=== PATIENT | female | born 1990 | race Caucasian/White ===

== ENCOUNTER 2016-10-07 18:12 | Emergency (ER) | payer BC ==
--- NOTE | 2016-10-07 19:20 | ED ---
HPI Cardiac - HPI Summary HPI Summary: Pt here w/ acute onset tachycardia, chest pain and feeling "hot on the inside" today while at work. Worse w/ standing which she expects due to her P.O.T.S. 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 She reports a recent h/o diarrhea and chest warmth about 2 weeks ago - was concerned her implanted cardiac event monitor (placed by Dr. Shirley in 08/2016) was infected, so she followed up with Dr. Oropeza - pt reports she did not have a fever per thermometer and physician felt her chest then told her it was not infected - no labs, etc. Pt also reports that she gets diarrhea when her electrolytes are imbalanced and she knows this is a sign of hypokalemia but was putting it off until the last minute. States he is urinating frequently as well today (another sign electrolytes imbalance). Also admits to a vegetarian diet w/o iron supplementation (ferritin in lab records was < 10 in 05/2016). Pt states she has had no medical counseling since this lab draw on how to replace this but she was going to start iron supplements. She did not because she read iron overdose is common and got nervous. She also admits she does not eat iron rich foods, such as green vegetables, almonds, dairy, nuts, etc. States she doesn't eat much in general as she's often nauseous - denies h/o eating d/o. Does not consume caffeine or ETOH nor does she smoke tobacco or use drugs. No stimulant use rx'd or other. - History of Current Complaint Chief Complaint: EDDysrhythmPalp Stated Complaint: PALPITATIONS-CARDIAC HX Time Seen by Provider: 10/07/16 18:35 Hx Obtained From: Patient Pain Intensity: 6 - Allergy/Home Medications Allergies/Adverse Reactions: Allergies Allergy/AdvReac Type Severity Reaction Status Date / Time Latex Allergy Hives Verified 10/07/16 18:21 PMH/Surg Hx/FS Hx/Imm Hx Previously Healthy: Yes Endocrine/Hematology History: Reports: Hx Anemia - ferritin < 10 on 05/2016 w/o replacement, Other Endocrine/Hematological Disorders - Gitleman's syndrome Denies: Hx Anticoagulant Therapy, Hx Blood Disorders, Hx Diabetes, Hx Systemic Lupus Erythematosus, Hx Unexplained Bleeding Cardiovascular History: Reports: Hx Hypertension - TREATED WITH MEDICATION, Other Cardiovascular Problems/Disorders - postural orthostatic tachycardia syndrome - cardiac event monitor 08/2016 Denies: Hx Congestive Heart Failure, Hx Pacemaker/ICD Respiratory History: Reports: Hx Asthma, Hx Pulmonary Edema GI History: Denies: Hx Gastrointestinal Bleed, Hx Ulcer History: Reports: Other Problems/Disorders - Gitelman's syndrome Denies: Hx Dialysis, Hx Renal Disease Musculoskeletal History: Denies: Hx Rheumatoid Arthritis Sensory History: Reports: Hx Contacts or Glasses Denies: Hx Hearing Aid Opthamlomology History: Reports: Hx Contacts or Glasses Neurological History: Reports: Other Neuro Impairments/Disorders - autoimmune nerve disfunction Psychiatric History: Denies: Hx Panic Disorder - Cancer History Hx Chemotherapy: No Infectious Disease History: Yes Infectious Disease History: Denies: History Other Infectious Disease, Traveled Outside the [place] in Last 30 Days - Family History Known Family History: Negative: Diabetes - Social History Occupation: Employed Full-time Alcohol Use: None Hx Substance Use: No Substance Use Type: Reports: None Hx Tobacco Use: No Smoking Status (MU): Never Smoked Tobacco Have You Smoked in the Last Year: No Review of Systems Constitutional: Other - see HPI Cardiovascular: Other - no chest pain currently Positive: Shortness Of Breath Gastrointestinal: Other - see HPI Negative: Abdominal Pain, Vomiting Positive: see HPI Musculoskeletal: Other - hurts all over (chronic) Skin: Negative Neurological: Negative Positive: Anxious All Other Systems Reviewed And Are Negative: Yes Physical Exam Triage Information Reviewed: Yes Vital Signs On Initial Exam: Initial Vitals Temp Pulse Resp BP Pulse Ox 99 F 109 20 134/81 100 10/07/16 18:21 10/07/16 18:21 10/07/16 18:21 10/07/16 18:21 10/07/16 18:21 Vital Signs Reviewed: Yes Appearance: Positive: No Pain Distress - appears anxious w/ dry mouth - breathing is somewhat labored Skin: Positive: Warm, Dry - no signs of ecchymosis Head/Face: Positive: Normal Head/Face Inspection Eyes: Positive: Normal, EOMI, Conjunctiva Clear - anicteric sclera ENT: Positive: Hearing grossly normal, Other - oral mucosa dry Neck: Positive: Supple - no gross thyromegaly Respiratory/Lung Sounds: Positive: Clear to Auscultation, Breath Sounds Present Cardiovascular: Positive: Pulses are Symmetrical in both Upper and Lower Extremities, Tachycardia, S1, S2. Negative: Murmur, Rub, Leg Edema Left, Leg Edema Right Abdomen Description: Positive: Nontender, Soft Bowel Sounds: Positive: Present Musculoskeletal: Positive: Normal, Strength/ROM Intact Neurological: Positive: Normal, Sensory/Motor Intact, Alert, Oriented to Person Place, Time, CN Intact II-III Psychiatric: Positive: Anxious Diagnostics - Vital Signs Vital Signs Temp Pulse Resp BP Pulse Ox 10/07/16 18:21 99 F 109 20 134/81 100 - Laboratory Result Diagrams: 10/07/16 20:05 10/07/16 20:05 Lab Statement: Any lab studies that have been ordered have been reviewed, and results considered in the medical decision making process. Re-Evaluation - Re-Evaluation First Eval Change: Worse - pt reports chest pain @ 19:47 - ASA ordered and fluids to be hung DYLAN Second Eval Change: Improved - per nurse, pt declined ASA - sx improved after placing a warm blanket over her chest and once IVF were administered - vitals and breathing improved as well Disposition - Course Course Of Treatment: Discussed sx and findings w/ pt. Appears to have been dehydrated from recent diarrhea which may have triggered her tachycardia to be more apparent than usual. She also admits she's not been taking her medications nor supplements as directed. Sx improved w/ IVF and reassurance. Her 1st dose of phosphate was administered here and she will continue to take this over the next 2 days along with routine meds/supplements previously rx'd to return to baseline which per pt, was "good". She is aware of danger s/sx of when to return to ED and will f/u w/ PCP tomorrow or the following day for recheck of phosphorous level. - Diagnoses Provider Diagnoses: Hypophosphatemia, Postural orthostatic tachycardia syndrome - Physician Notifications Discussed Care Of Patient With: Dr. Gaytan. Dr. Shanks. Celestino, pharmacist, re : dosing of phosphorous Discharge - Discharge Plan Condition: Stable Disposition: HOME Prescriptions: Potassium & Sodium Phos 250MG* [Neutra Phos 250 MG NELL*] 200 mg PO QID #1 box Patient Education Materials: Phosphate Supplement (By mouth) Forms: *Work Release Referrals: Urmila Shirley MD [Medical Doctor] - Xiang Muir MD [Primary Care Provider] - Additional Instructions: Your labs tonight indicate very low phosphate and somewhat low potassium. It is important that you take supplements as directed and follow-up with your PCP in the next 1-2 days. Only take your phosphate supplement for 2 days and have labs rechecked by PCP. Call in the morning to schedule follow-up appointment. 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 Let them know to check the event monitor during your episode from today. Restart your routine medications as directed by PCP and cardiology along with a well balanced diet. You may have iron anemia - please discuss with your PCP. *If you have return of chest pain, uncontrolled tachycardia, vomiting, difficulty breathing, fever, headache, return to ED
[2016-10-07] MEDS ORDERED: NS 0.9% 1000 ML* 1,000 ML IV ONE (19:36)
--- NOTE | 2016-10-07 19:41 | RAD ---
Indication: Tachycardia. Palpitations. Comparison: June 27, 2015 Technique: Upright AP 1926 hours Report: electro mechanical designer visualized overlying the LEFT heart margin. Clear lungs and pleural spaces. Negative for pneumothorax. The heart, pulmonary vasculature, and mediastinal contours are unremarkable. Unremarkable osseous structures and soft tissue contours. IMPRESSION: No evidence for acute intrathoracic disease.
[2016-10-07] MEDS ORDERED: Aspirin TAB* 325 MG PO ONE (19:46)
[2016-10-07 20:30] LABS: Hematocrit 48 % (35-47); Hemoglobin 16.2 g/dl (12.0-16.0); Mean Corpuscular HGB Conc 34 g/dl (31-36); Mean Corpuscular Hemoglobin 29 pg (27-31); Mean Corpuscular Volume 87 fL (80-97); Mean Platelet Volume 9 um3 (7.4-10.4); Red Blood Count 5.52 10^6/ul (4.0-5.4); Red Cell Distribution Width 12 % (10.5-15)
[2016-10-07 20:31] LABS: Urine Bilirubin Negative (Negative); Urine Glucose Negative (Negative); Urine Nitrite Negative (Negative)
[2016-10-07 20:49] LABS: Albumin 4.8 g/dL (3.2-5.2); BUN/Creatinine Ratio 9.1 (8-20); Calcium 9.8 mg/dL (8.6-10.3); EGFR African American 139.2 (>60); EGFR Non-African American 108.3 (>60); Globulin 3.5 g/dL (2-4); Phosphorus 1.1 mg/dL (2.5-5.0); Potassium 3.4 mmol/L (3.5-5.0); Total Bilirubin 0.4 mg/dL (0.2-1.0); Total Protein 8.3 g/dL (6.4-8.9)
[2016-10-07 21:08] LABS: TSH (Thyroid Stimulating Horm) 2.69 mcIU/mL (0.34-5.60)
[2016-10-07] MEDS ORDERED: Potassium & Sodium Phos 250MG* = 1 PACKET PO ONE (23:00)
[2016-10-07 23:37] VITALS: BP 108/61
== END 2016-10-07 23:50 | disposition home or self-care (01) ==
LOC: ED 18:12
DX: E83.39 Other disorders of phosphorus metabolism (principal); I49.8 Other specified cardiac arrhythmias; R00.0 Tachycardia, unspecified; R06.02 Shortness of breath; F41.9 Anxiety disorder, unspecified
CPT/HCPCS: 36415; 71010; 80053; 81003; 82550; 83540; 83550; 83605; 83735; 84100; 84443; 84484; 84702; 85025; 85610; 85730; 93005; 99283

== ENCOUNTER 2017-03-05 15:26 | Emergency (ER) | payer BC ==
[2017-03-05 15:36] VITALS: BP 114/67
--- NOTE | 2017-03-05 16:10 | UC ---
Throat Pain/Nasal Shadi HPI - HPI Summary HPI Summary: 26 yo female with a 2 week hx of post nasal drip (thick and tenacious), sinus pressure and pain as well as nasal congestion Hoarse no fever upper teeth feel funny worsening dyspepsia - History of Current Complaint Chief Complaint: UCRespiratory Stated Complaint: SINUS Time Seen by Provider: 03/05/17 15:34 Hx Obtained From: Patient Hx Last Menstrual Period: unknown, on BCP Onset/Duration: Lasting Weeks Severity: Moderate Pain Intensity: 4 Pain Scale Used: 0-10 Numeric Associated Signs & Symptoms: Positive: Sinus Discomfort, Nasal Discharge - Epiglottits Risk Factors Epiglottis Risk Factors: Negative - Allergies/Home Medications Allergies/Adverse Reactions: Allergies Allergy/AdvReac Type Severity Reaction Status Date / Time Latex Allergy Hives Verified 03/05/17 15:36 PMH/Surg Hx/FS Hx/Imm Hx Previously Healthy: Yes - P.O.T.S/Getalman's syndrome Other History Of: Negative For: Anticoagulant Therapy - Surgical History Surgical History: None - Family History Known Family History: Positive: Hypertension Negative: Diabetes - Social History Alcohol Use: Rare Substance Use Type: None Smoking Status (MU): Never Smoked Tobacco Have You Smoked in the Last Year: No - Immunization History Most Recent Influenza Vaccination: no Most Recent Tetanus Shot: UNKNOWN Most Recent Pneumonia Vaccination: never Review of Systems Constitutional: Negative Skin: Negative Eyes: Negative ENT: Nasal Discharge, Sinus Congestion, Sinus Pain/Tenderness Respiratory: Cough Cardiovascular: Negative Gastrointestinal: Other - worsening symptoms x weeks Genitourinary: Negative Motor: Negative Neurovascular: Negative Musculoskeletal: Negative Neurological: Negative Psychological: Negative All Other Systems Reviewed And Are Negative: Yes Physical Exam Triage Information Reviewed: Yes Appearance: Well-Appearing, No Pain Distress, Well-Nourished Vital Signs: Initial Vital Signs Temp 98.6 F 03/05/17 15:31 Pulse 84 03/05/17 15:31 Resp 14 03/05/17 15:31 BP 114/67 03/05/17 15:31 Pulse Ox 100 03/05/17 15:31 Eyes: Positive: Conjunctiva Clear ENT: Positive: Hearing grossly normal, TMs normal. Negative: Nasal congestion, Nasal drainage, Tonsillar swelling, Tonsillar exudate, Trismus, Muffled/hoarse voice Neck: Positive: Supple, Nontender, No Lymphadenopathy Respiratory: Positive: Lungs clear, Normal breath sounds, No respiratory distress, No accessory muscle use Cardiovascular: Positive: RRR, No Murmur Neurological: Positive: Alert Psychological Exam: Normal Skin Exam: Normal Throat Pain/Nasal Course/Dx - Differential Dx/Diagnosis Provider Diagnoses: acute sinusitis Discharge - Discharge Plan Condition: Stable Disposition: HOME Prescriptions: Amoxicillin PO (*) [Amoxicillin 875 MG (*)] 875 mg PO BID #20 tab Fluticasone NASAL SPRAY 50MCG* [Flonase NASAL SPRAY 50MCG*] 2 spray BOTH NARES DAILY #1 btl Patient Education Materials: Sinusitis (ED), Indigestion (ED) Referrals: Xiang Muir MD [Primary Care Provider] - 5 Days Additional Instructions: I suggest you see your MD next week return for new or worsening symptoms warm facial compresses saline nasal spray Use your OTC pepcid for 2 weeks
== END 2017-03-05 16:04 | disposition home or self-care (01) ==
LOC: UCCORT 15:26
DX: J01.90 Acute sinusitis, unspecified (principal)
CPT/HCPCS: 99212; G0463

== ENCOUNTER 2017-08-14 13:46 | Emergency (ER) | payer BC ==
[2017-08-14 17:16] VITALS: BP 125/80
--- NOTE | 2017-08-14 17:38 | UC ---
Complaint Female HPI - HPI Summary HPI Summary: pain and burning with urination, no fevers chills back pain, nausea or vomiting , patient noted blood in her urine earlier today - History Of Current Complaint Chief Complaint: UCGU Stated Complaint: URINARY ISSUE Time Seen by Provider: 08/14/17 17:35 Hx Obtained From: Patient Hx Last Menstrual Period: 07/30/17 ?: No Onset/Duration: Sudden Onset, Lasting Days, Still Present Timing: Constant Severity Initially: Moderate Severity Currently: Moderate Pain Intensity: 8 Character: Burning Aggravating Factor(s): Urination Alleviating Factor(s): Nothing Associated Signs And Symptoms: Positive: Negative - Allergies/Home Medications Allergies/Adverse Reactions: Allergies Allergy/AdvReac Type Severity Reaction Status Date / Time MS Latex [Latex] Allergy Hives Verified 08/14/17 17:16 PMH/Surg Hx/FS Hx/Imm Hx Previously Healthy: No Cardiovascular History: Cardiac Disease - tachycardia Other History Of: Negative For: Anticoagulant Therapy - Surgical History Surgical History: None - Family History Known Family History: Positive: Hypertension Negative: Diabetes - Social History Occupation: Employed Full-time Lives: With Family Alcohol Use: Rare Substance Use Type: None Smoking Status (MU): Never Smoked Tobacco Have You Smoked in the Last Year: No - Immunization History Most Recent Influenza Vaccination: no Most Recent Tetanus Shot: UNKNOWN Most Recent Pneumonia Vaccination: never Review of Systems Constitutional: Negative Skin: Negative Eyes: Negative ENT: Negative Respiratory: Negative Cardiovascular: Negative Gastrointestinal: Negative Genitourinary: Dysuria, Hematuria, Frequency, Urgency Motor: Negative Neurovascular: Negative Musculoskeletal: Negative Neurological: Negative Psychological: Negative Is Patient Immunocompromised?: No All Other Systems Reviewed And Are Negative: Yes Physical Exam Triage Information Reviewed: Yes Appearance: Well-Appearing, No Pain Distress, Well-Nourished Vital Signs: Initial Vital Signs Temp 98.9 F 08/14/17 17:12 Pulse 85 08/14/17 17:12 Resp 12 08/14/17 17:12 BP 125/80 08/14/17 17:12 Pulse Ox 100 08/14/17 17:12 Vital Signs Reviewed: Yes Eye Exam: Normal Eyes: Positive: Conjunctiva Clear ENT Exam: Normal ENT: Positive: Normal ENT inspection, Hearing grossly normal. Negative: Nasal congestion, Trismus, Muffled voice, Hoarse voice, Dental tenderness, Sinus tenderness Dental Exam: Normal Neck exam: Normal Neck: Positive: Supple, Nontender Respiratory Exam: Normal Respiratory: Positive: Chest non-tender, Lungs clear, Normal breath sounds, No respiratory distress, No accessory muscle use Cardiovascular Exam: Normal Cardiovascular: Positive: RRR, No Murmur, Pulses Normal, Brisk Capillary Refill Abdominal Exam: Normal Abdomen Description: Positive: Nontender, No Organomegaly, Soft. Negative: CVA Tenderness (R), CVA Tenderness (L), McBurney's Point Tenderness Bowel Sounds: Positive: Present Musculoskeletal Exam: Normal Musculoskeletal: Positive: Strength Intact, ROM Intact, No Edema Neurological Exam: Normal Neurological: Positive: Alert, Muscle Tone Normal Psychological Exam: Normal Skin Exam: Normal Diagnostics - Laboratory Diagnostic Studies Completed/Ordered: +nitrite, +1 leukoesterace Complaint Female Dx - Course Course Of Treatment: Bactrim, pyridium, increase fluids, follow with pcp return to ed as needed - Differential Dx/Diagnosis Provider Diagnoses: UTI Discharge - Discharge Plan Condition: Stable Disposition: HOME Prescriptions: Phenazopyridine TAB* [Pyridium 100 mg TAB*] 100 mg PO TID PRN #6 tab PRN Reason: urinary pain and burning Sulfamethox/Trimethoprim DS* [Bactrim DS 800/160 TAB*] 1 tab PO BID #14 tab Patient Education Materials: Urinary Tract Infection in Women (ED) Referrals: Xiang Muir MD [Primary Care Provider] - If Needed
--- NOTE | 2017-08-17 16:38 | UC ---
- Progress Note Progress Note: call patient assure sx are improving if not have her follow with pcp or planned parent ann as urine did not grow out Bacteria
== END 2017-08-14 18:22 | disposition home or self-care (01) ==
LOC: UCEAST 13:46
DX: N39.0 Urinary tract infection, site not specified (principal); R31.9 Hematuria, unspecified; Z32.02 Encounter for pregnancy test, result negative; R00.0 Tachycardia, unspecified; Z91.040 Latex allergy status
CPT/HCPCS: 81003; 81025; 87086; 99212; G0463

== ENCOUNTER 2019-02-15 10:03 | Emergency (ER) | payer BC ==
--- OUTSIDE RECORDS SUMMARY | 2019-02-15 10:21 | XMS REPORT | Continuity of Care Document ---
:1990 External Reference #:[id number] Author Name Xiang Muir MD Address [address] [place] [address] Care Team Providers Name Role Phone Xiang Muir MD FACP Primary Care Physician Unavailable Payers Date Identification Numbers Payment Provider Subscriber Expires: 2015 Policy Number: [id number] [employer] David Barber PayID: [id number] [address] [address] [place] [address] Expires: 2016 Policy Number: [id number] [employer] David Barber PayID: [id number] [address] [place] [address] Effective: 2016 Policy Number: [id number] [employer] Melania Barber Expires: 2018 PayID: [id number] [address] [address] [place] [address] Effective: 2018 Policy Number: [id number] [employer] Melania Barber PayID: [id number] [address] [address] [place] [address] Problems Active Problems Provider Date Moderate recurrent major depression Xiang Muir MD Onset: 05/25/2018 Blood chemistry abnormal Xiang Muir MD Onset: 07/02/2017 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/2017 Disorder of phosphorus metabolism Xiang Muir MD Onset: 11/07/2015 Disorder of magnesium metabolism Xiang Muir MD Onset: 11/07/2015 Sleep dysfunction with arousal disturbance Xiang Muir MD Onset: 08/10 Disturbance in sleep behavior Xiang Muir MD Onset: 08/10/2015 Sleep dysfunction with sleep stage Xiang Muir MD Onset: 08/10/2015 disturbance Insomnia Xiang Muir MD Onset: 07/04/2015 Panic disorder with agoraphobia Xiang Muir MD Onset: 06/28/2015 Generalized anxiety disorder Xiang Muir MD Onset: 06/28/2015 Anxiety state Xiang Muir MD Onset: 03/06/2015 Social History Type Date Description Comments Sex Unknown Marital Status 11/23/2014 Single 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 ETOH Use 2018 Currently consumes "I have been drinking alcohol wine and mix drinks" 09/09/18. Tobacco Use Start: Unknown Patient has never smoked Recreational Drug Use 11/23/2014 Denies Drug Use Smoking Status Reviewed: 07/02/17 Patient has never smoked Exercise Type/Frequency Exercises regularly Currently Active Patient is currently sexually active STD's No STD History Allergies, Adverse Reactions, Alerts Description No Known Drug Allergies Medications Active Medications SIG Qnty Indications Ordering Provider Date Amiloride HCL Take 2 tablets by E83.42 Froy Penny, 05/25/2015 5mg Tablets mouth daily E87.6 History Medications Escitalopram Oxalate take 1 tablet by 30tabs F41.9 Xiang A 12/10/2018 - mouth daily for MD Isadora 01/28/2019 10mg Tablets anxiety and depression F60.0 F33.1 Escitalopram Oxalate take 1 tablet by 30tabs F41.9 Otoole A 05/25/2018 - mouth daily for MD Isadora 12/10/2018 20mg Tablets generalized anxiety disorder F60.0 F33.1 Ferrex 150 take 1 capsule by 30caps E61.1 Xiang A 05/07/2018 - 150mg mouth once daily MD Isadora 02/02/2019 Capsules for iron deficiency anemia Ferrex 150 take 1 capsule by 60caps E61.1 Xiang A 03/23/2018 - 150mg mouth twice daily MD Isadora 05/07/2018 Capsules for iron deficiency anemia Escitalopram Oxalate Take Two Tablets By 30tabs F41.9 Xiang Londono 2017 - Mouth Every Day For MD Isadora 05/25/2018 10mg Tablets Generalized Anxiety Disorder F60.0 F33.1 Cranberry 1 tab every day Unknown 08/07/2017 - 250mg 02/02/2019 Capsules Vitamin B-12 every day Unknown 08/07/2017 - 3000mcg 12/10/2018 Tablets Sub Alprazolam Every night F41.9 Blank Triplett, 07/07/2017 - 0.25mg 09/09/2018 Tablets Atenolol 1/2 by mouth R00.0 Urmila Shirley MD 07/01/2017 - 25mg Tablets every day 02/01/2019 I95.1 R00.2 Omeprazole Take 1 capsule by mouth K21.9 Zohaib Montalvo, 06/17/2017 - 40mg daily for M.D. 07/02/2017 Capsules gastroesophageal reflux disease Famotidine Take 1 tablet by mouth K21.9 Zohaib Montalvo, 06/16/2017 - 40mg daily for M.D. 07/02/2017 Tablets gastroesophageal reflux disease Phos-Nak Take One Packet By Froy Penny 01/13/2017 - Mouth Once A Day MD Melanie 03/06/2017 [phone] Packet Excedrin Migraine Take 2 tablets by mouth R51 Xiang Londono 11/09/2015 - every 6 hours as needed MD Isadora 03/04/2017 [phone] for pain Tablets Diflucan 1 by mouth once 1tabs B37.3 Otoole Spring 11/07/2015 - 150mg MD Isadora 04/25/2017 Tablets Slow 1 by mouth three times E83.42 Froy Penny 10/15/2015 - Magnesium/Calcium a day AMD Sid 04/28/2017 64-[address]mg Tablets DR Toussaint 1/2 in morning and 1/2 R00.0 Urmila Shirley, 09/08/2015 - 25mg at night by mouth every 07/02/2017 Tablets day I95.1 R00.2 Trazodone HCL / tab by G47Ivonne Londono 08/28/2015 - 50mg mouth every night MD Isadora 09/04/2015 Tablets at bedtime Trazodone HCL Take 1 tablet by 30tabs G47.9 Otoole Spring 08/10/2015 - 50mg mouth daily at MD Isadora 08/28/2015 Tablets bedtime as needed for trouble sleeping Melatonin 1 capsule by G47.9 Xiang Londono 07/04/2015 - 5mg mouth daily at MD Isadora 07/04/2015 Capsules bedtime with food as needed for trouble sleeping Atenolol 1 by mouth every R00.0 Otoole A 05/15/2015 - 25mg day MD Isadora 09/08/2015 Tablets I95.1 R00.2 Potassium & Magnesium Xiang Muir 05/12/2015 - Aspartshalonda GARCIA 06/04/2015 250-250mg Capsules Atenolol 1/2 by mouth R00.0 Unknown 04/25/2015 - 25mg Tablets every day 05/15/2015 I95.1 Magnesium Aspartate 1 by mouth E83.42 Froy Penny MD 04/07/2015 - three times a 05/10/2015 65mg Tablets day I95.1 R53.1 [place] Three times a day E83.42 Froy Penny MD 04/07/2015 - Magnesium 06/04/2015 600mg Magnesium Citrate 2 tbsp four times a E83.42 Froy Penny MD 2014 - day 10/15/2015 1.745GM/30ML Solution Lexapro take one tablet by F40.01 Blank Triplett MD 12/20/2014 - 10mg mouth every day for 01/27/2015 Tablets anxiety and depression F41.1 Euphrasia 3 pellets under 995.3 Hong Hernández, 12/14/2014 - Officinalis tongue up to [employer] [employer] 03/05/2015 30C 3x/day for allergy symptoms of sneezing, runny nose, tearing eyes. Magnesium Aspartate otc: 1 tab orally 784.0 Hong Hernández, 11/23/2014 - daily for [employer] [employer] 03/05/2015 300mg Tablets headache prevention; decrease to every other day for diarrhea Atenolol 1 tab by mouth 30tabs R00.0 Otoole A 10/05/2014 - 25mg Tablets every night MD Isadora 05/10/2015 I95.1 Lexapro tab by mouth every 300.00 Blank Triplett 07/07/2014 - 5mg night anxiety H.MD 12/20/2014 Tablets Xanax take 1 tablet by 30tabs F41.1 Otoole A 07/07/2014 - 0.25mg mouth, as needed, MD Isadora 04/28/2017 Tablets 2 times per day for panic disorder F40.01 F51.02 Xopenex HFA inhale 2 puffs by 493.90 [place] MD 07/07/2014 - 45mcg/Act mouth every 4 hours 03/06/2015 Aerosol as needed for bronchospasm with asthma Acetaminophen 1 tab by mouth R51 Unknown 07/07/2014 - 500mg every day as needed 11/09/2015 Tablets headache pain Sodium Chloride 1 tab by mouth 1000tab 458.0 Hong Garcia 03/07/2014 - 1gm three times a day DINORAH Floyd 03/06/2015 Tablets Linsey Take 1 tablet by Z79.3 Unknown 07/07/2007 - 90-20mcg mouth daily for 28 12/05/2018 Tablets days for control Linsey Take One Tablet By 28tabs Z30.9 Otoole A - 90-20mcg Mouth Every Day MD Isadora 06/02/2017 Tablets Immunizations CPT Code Status Date Vaccine Lot # [id number] Given 05/25/2018 Tdap-Tetanus, Diphtheria Toxoids/Acellular [id number] Pertussis Vaccine 7+ [id number] Given 06/01/2015 Influenza Virus Split 3 Yrs And Above For Intramuscular Use [id number] Refused 11/07/2015 Tdap-Tetanus, Diphtheria Toxoids/Acellular Pertussis Vaccine 7+ [id number] Refused 05/10/2015 Influenza Virus Split 3 Yrs And Above For Intramuscular Use Vital Signs Date Vital Result Comment 02/02/2019 11:11am Heart Rate 76 /min BP Systolic 90 mmHg Supine and standing BP Diastolic 70 mmHg Supine and standing Weight 146.00 lb 12/10/2018 1:09pm Heart Rate 76 /min BP Systolic 105 mmHg BP Diastolic 70 mmHg Weight 149.00 lb 09/09/2018 2:01pm Body Temperature 98.2 F O2 % BldC Oximetry 97 % Heart Rate 103 /min BP Systolic 110 mmHg BP Diastolic 65 mmHg BMI (Body Mass Index) 25.7 kg/m2 Weight 152.00 lb Height 64.50 inches 5'4.50" 05/25/2018 12:44pm Heart Rate 70 /min BP Systolic 100 mmHg Supine and standing BP Diastolic 70 mmHg Supine and standing BMI (Body Mass Index) 24.5 kg/m2 Weight 145.00 lb Height 64.5 inches 5'4.50" 03/23/2018 11:09am Body Temperature 97.3 F Heart Rate 82 /min BP Systolic 100 mmHg BP Diastolic 60 mmHg Weight 139.00 lb 09/11/2017 1:39pm Body Temperature 97.8 F Heart Rate 80 /min BP Systolic 85 mmHg BP Diastolic 60 mmHg BP Systolic Recheck 75 mmHg BP Diastolic Recheck 60 mmHg Weight 123.00 lb 07/02/2017 1:41pm Body Temperature 97.6 F O2 % BldC Oximetry 100 % Heart Rate 96 /min BP Systolic 95 mmHg BP Diastolic 65 mmHg BMI (Body Mass Index) 21.5 kg/m2 Weight 127.00 lb Height 64.50 inches 5'4.50" 06/04/2017 12:02pm Heart Rate 70 /min BP Systolic 100 mmHg Supine BP Diastolic 60 mmHg Supine BP Systolic Recheck 95 mmHg Standing and asymptomatic BP Diastolic Recheck 60 mmHg Standing and asymptomatic Weight 125.00 lb 04/28/2017 12:01pm Heart Rate 72 /min BP Systolic 95 mmHg Supine and standing BP Diastolic 60 mmHg Supine and standing Weight 125.00 lb 04/17/2017 10:52am Heart Rate 78 /min BP Systolic 100 mmHg Supine BP Diastolic 60 mmHg Supine BP Systolic Recheck 90 mmHg Standing BP Diastolic Recheck 60 mmHg Standing Weight 129.00 lb 04/17/2017 10:05am Body Temperature 97.8 F 04/15/2017 2:59pm Heart Rate 80 /min supine and 100 when standing BP Systolic 100 mmHg supine BP Diastolic 60 mmHg supine BP Systolic Recheck 80 mmHg Stading BP Diastolic Recheck 65 mmHg Stading 04/15/2017 1:43pm Body Temperature 97.7 F 02/04/2017 12:46pm Heart Rate 72 /min BP Systolic 100 mmHg Supine and standing BP Diastolic 60 mmHg Supine and standing Weight 133.00 lb 10/08/2016 2:14pm Heart Rate 80 /min BP Systolic 105 mmHg BP Diastolic 70 mmHg Weight 133.00 lb 08/14/2016 3:11pm Heart Rate 70 /min BP Systolic 95 mmHg Supine BP Diastolic 60 mmHg Supine BP Systolic Recheck 90 mmHg Standing BP Diastolic Recheck 60 mmHg Standing Weight 132.00 lb 07/02/2016 3:18pm Heart Rate 76 /min Supine & 86 standing BP Systolic 105 mmHg Supine BP Diastolic 60 mmHg Supine BP Systolic Recheck 95 mmHg Standing, asymptomatic BP Diastolic Recheck 60 mmHg Standing, asymptomatic 06/19/2016 4:06pm Body Temperature 98.1 F O2 % BldC Oximetry 100 % Heart Rate 91 /min Supine & 110 sitting BP Systolic 85 mmHg Supine BP Diastolic 60 mmHg Supine BP Systolic Recheck 80 mmHg Sitting BP Diastolic Recheck 60 mmHg Sitting BMI (Body Mass Index) 23.0 kg/m2 Weight 134.00 lb Height 64 inches 5'4" 11/07/2015 2:02pm O2 % BldC Oximetry 98 % Heart Rate 83 /min BP Systolic 105 mmHg BP Diastolic 70 mmHg Weight 135.00 lb 10/17/2015 2:05pm Body Temperature 98.8 F O2 % BldC Oximetry 96 % Heart Rate 64 /min BP Systolic 100 mmHg BP Diastolic 60 mmHg Weight 133.00 lb 08/28/2015 2:37pm Heart Rate 88 /min BP Systolic 95 mmHg BP Diastolic 70 mmHg 07/26/2015 3:41pm O2 % BldC Oximetry 100 % Heart Rate 84 /min 06/28/2015 11:37am O2 % BldC Oximetry 100 % Heart Rate 77 /min Supine and standing BP Systolic 100 mmHg Supine and standing BP Diastolic 60 mmHg Supine and standing 06/08/2015 2:26pm Body Temperature 98.2 F Heart Rate 64 /min BP Systolic 100 mmHg BP Diastolic 60 mmHg Weight 127.00 lb 05/10/2015 2:37pm Heart Rate 76 /min BP Systolic 110 mmHg Supine BP Diastolic 70 mmHg Supine BP Systolic Recheck 105 mmHg Standing BP Diastolic Recheck 70 mmHg Standing Weight 126.00 lb 04/25/2015 3:53pm Body Temperature 98.4 F O2 % BldC Oximetry 98 % Heart Rate 76 /min BP Systolic 95 mmHg BP Diastolic 60 mmHg 04/13/2015 2:42pm Body Temperature 98.4 F O2 % BldC Oximetry 98 % Heart Rate 90 /min BP Systolic 90 mmHg BP Diastolic 65 mmHg 03/22/2015 5:48pm O2 % BldC Oximetry 99 % Heart Rate 78 /min BP Systolic 100 mmHg Supine BP Diastolic 60 mmHg Supine BP Systolic Recheck 90 mmHg Standing, asymptomatic BP Diastolic Recheck 60 mmHg Standing, asymptomatic Weight 126.00 lb 03/06/2015 2:03pm O2 % BldC Oximetry 100 % Heart Rate 70 /min Supine and 94 standing BP Systolic 100 mmHg Supine BP Diastolic 80 mmHg Supine BP Systolic Recheck 80 mmHg Standing & symptomatic BP Diastolic Recheck 70 mmHg Standing & symptomatic Weight 124.00 lb 03/01/2015 2:12pm O2 % BldC Oximetry 100 % Ra 01/31/2015 2:06pm Body Temperature 98.5 F O2 % BldC Oximetry 100 % Heart Rate 92 /min BP Systolic 102 mmHg BP Diastolic 70 mmHg BMI (Body Mass Index) 20.8 kg/m2 Weight 122.00 lb Height 64.25 inches 5'4.25" 01/03/2015 1:57pm Body Temperature 98.8 F O2 % BldC Oximetry 100 % Heart Rate 72 /min BP Systolic 100 mmHg BP Diastolic 70 mmHg BMI (Body Mass Index) 20.1 kg/m2 Weight 118.00 lb Height 64.25 inches 5'4.25" 12/14/2014 10:40am Body Temperature 97.2 F O2 % BldC Oximetry 97 % Heart Rate 74 /min BP Systolic 110 mmHg BP Diastolic 82 mmHg BMI (Body Mass Index) 19.9 kg/m2 Weight 117.00 lb Height 64.25 inches 5'4.25" 11/30/2014 10:10am Body Temperature 98.9 F O2 % BldC Oximetry 98 % Heart Rate 80 /min BP Systolic 96 mmHg BP Diastolic 58 mmHg BMI (Body Mass Index) 18.7 kg/m2 Weight 110.00 lb Height 64.25 inches 5'4.25" 11/23/2014 8:58am Body Temperature 98.4 F O2 % BldC Oximetry 100 % Heart Rate 78 /min 80 moving from sitting to standing BP Systolic 96 mmHg BP Diastolic 56 mmHg BMI (Body Mass Index) 19.4 kg/m2 Weight 114.00 lb Height 64.25 inches 5'4.25" Results Test Date Facility Test Result H/L Range Note Hepatitis C Antibody 01/15/2019 [facility] HCV Index 0.01 s/c [place], [place] [id number] [phone] Hepatitis C Antibody Negative Negative HIV 4TH 01/15/2019 [facility] HIV 4th [place] [address] Generation [phone] CBC No Diff 01/15/2019 [facility] White Blood 4.0 10^3/uL N 3.5-10.8 [place] [address] Count [phone] Red Blood Count 4.87 10^6/uL N 3.70-4.87 Hemoglobin 14.8 g/dL N 12.0-16.0 Hematocrit 42 % N 35-47 Mean Corpuscular Volume 87 fL N 80-97 Mean Corpuscular Hemoglobin 30 pg N 27-31 Mean Corpuscular HGB Conc 35 g/dL N 31-36 Red Cell Distribution Width 12 % N 10-15 Platelet Count 238 10^3/uL N 150-450 Mean Platelet Volume 9.4 fL N 7.4-10.4 Laboratory test 01/15/2019 [facility] HCG < 0.60 mIU/ mL 1 finding [place], [place] [id number] [phone] Cortisol 8.36 g/dL 2 TSH (Thyroid Stim Horm) 0.70 mcIU/mL N 0.34-5.60 3 Basic Metabolic Panel 01/15/2019 [facility] Sodium 140 mmol/L N 135-145 [place] [address] [phone] Potassium 4.4 mmol/L N 3.5-5.0 Chloride 107 mmol/L N 101-111 Co2 Carbon Dioxide 25 mmol/L N 22-32 Anion Gap 8 mmol/L N 2-11 Glucose 72 mg/dL N 70-100 Blood Urea Nitrogen 8 mg/dL N 6-24 Creatinine 0.77 mg/dL N 0.51-0.95 BUN/Creatinine Ratio 10.4 N 8-20 Calcium 9.6 mg/dL N 8.6-10.3 Egfr Non- 88.6 >60 Egfr 107.2 >60 4 Iron & Iron Binding 01/15/2019 [facility] Iron 146 g/dL N 50 -212 [place] [address] [phone] Unsaturated Iron Binding < 367 g/dL Total Iron Binding Capacity 382 g/dL N 250-450 Transferrin 273 mg/dL N 203-362 % Iron Saturation 38 % N 15-55 Laboratory test 01/15/2019 [facility] Ferritin 19.0 ng/mL N 11 -307 [place] [address] [phone] Laboratory test 12/23/2018 [facility] HCG Quantitative < 0.06 finding () CBC No Diff 12/14/2018 [facility] White Blood Count 4.5 N 3.5- 10.8 [place] [address] 10^3/uL [phone] Red Blood Count 4.85 10^6/uL N 3.70-4.87 Hemoglobin 14.5 g/dL N 12.0-16.0 Hematocrit 43 % N 35-47 Mean Corpuscular Volume 88 fL N 80-97 Mean Corpuscular Hemoglobin 30 pg N 27-31 Mean Corpuscular HGB Conc 34 g/dL N 31-36 Red Cell Distribution Width 13 % N 10-15 Platelet Count 210 10^3/uL N 150-450 Mean Platelet Volume 9.7 fL N 7.4-10.4 Laboratory test 12/14/2018 [facility] Ferritin 13.6 ng/mL N 11 -307 [place] [address] [phone] Iron & Iron Binding 12/14/2018 [facility] Iron 117 g/dL N 50 -212 [address] [place], [place] [id number] [phone] Unsaturated Iron Binding < 380 g/dL Total Iron Binding Capacity 395 g/dL N 250-450 Transferrin 282 mg/dL N 203-362 % Iron Saturation 30 % N 15-55 Basic Metabolic Panel 12/14/2018 [facility] Sodium 140 mmol/L N 135-145 [place] [address] [phone] Potassium 4.5 mmol/L N 3.5-5.0 Chloride 110 mmol/L N 101-111 Co2 Carbon Dioxide 23 mmol/L N 22-32 Anion Gap 7 mmol/L N 2-11 Glucose 80 mg/dL N 70-100 Blood Urea Nitrogen 8 mg/dL N 6-24 Creatinine 0.76 mg/dL N 0.51-0.95 BUN/Creatinine Ratio 10.5 N 8-20 Calcium 8.9 mg/dL N 8.6-10.3 Egfr Non- 90.0 >60 Egfr 108.9 >60 5 Lipid Profile 09/04/2018 [facility] Triglycerides 70 mg/dL < 150 6 (Trig/Chol/HDL) [place], [place] [id number] [phone] Cholesterol 212 mg/dL High <200 7 HDL Cholesterol 61.0 mg/dL >40 8 LDL Cholesterol 137 mg/dL <160 9 Comp Metabolic Panel 09/04/2018 [facility] Sodium 140 mmol/L N 135-145 [place] [address] [phone] Potassium 4.7 mmol/L N 3.5-5.0 Chloride 109 mmol/L N 101-111 Co2 Carbon Dioxide 26 mmol/L N 22-32 Anion Gap 5 mmol/L N 2-11 Glucose 82 mg/dL N 70-100 Blood Urea Nitrogen 11 mg/dL N 6-24 Creatinine 0.77 mg/dL N 0.51-0.95 BUN/Creatinine Ratio 14.3 N 8-20 Calcium 9.1 mg/dL N 8.6-10.3 Total Protein 6.9 g/dL N 6.4-8.9 Albumin 4.1 g/dL N 3.2-5.2 Globulin 2.8 g/dL N 2-4 Albumin/Globulin Ratio 1.5 N 1-3 Total Bilirubin 0.40 mg/dL N 0.2-1.0 Alkaline Phosphatase 36 U/L N 34-104 Alt 17 U/L N 7-52 Ast 19 U/L N 13-39 Egfr Non- 89.3 >60 Egfr 108.0 >60 10 Iron & Iron Binding 09/04/2018 [facility] Iron 170 g/dL N 50 -212 [address] [place], [place] [address] [phone] Unsaturated Iron Binding 286 g/dL Total Iron Binding Capacity 456 g/dL High 250-450 Transferrin 326 mg/dL N 203-362 % Iron Saturation 37 % N 15-55 Laboratory test 09/04/2018 [facility] Ferritin 10.0 ng/mL Low 11-307 finding [place], [place] [id number] [phone] CBC No Diff 09/04/2018 [facility] White Blood 4.2 N 3.5-10.8 [place] [address] Count 10^3/uL [phone] Red Blood Count 4.88 10^6/uL N 4.00-5.40 Hemoglobin 14.5 g/dL N 12.0-16.0 Hematocrit 43 % N 35-47 Mean Corpuscular Volume 88 fL N 80-97 Mean Corpuscular Hemoglobin 30 pg N 27-31 Mean Corpuscular HGB Conc 34 g/dL N 31-36 Red Cell Distribution Width 12 % N 10.5-15 Platelet Count 221 10^3/uL N 150-450 Mean Platelet Volume 9.2 fL N 7.4-10.4 Laboratory test 05/22/2018 [facility] Ferritin 7.5 ng/mL Low 11-307 finding [place], [place] [address]389862 [phone] Iron & Iron Binding 05/22/2018 [facility] Iron 142 g/dL N 50 -212 [place] [address] [phone] Unsaturated Iron Binding < 465 g/dL Total Iron Binding Capacity 480 g/dL High 250-450 Transferrin 343 mg/dL N 203-362 % Iron Saturation 30 % N 15-55 CBC No Diff 03/23/2018 [facility] White Blood 5.2 10^3/uL N 3.5-10.8 [place] [address] Count [phone] Red Blood Count 4.72 10^6/uL N 4.00-5.40 Hemoglobin 14.0 g/dL N 12.0-16.0 Hematocrit 41 % N 35-47 Mean Corpuscular Volume 87 fL N 80-97 Mean Corpuscular Hemoglobin 30 pg N 27-31 Mean Corpuscular HGB Conc 34 g/dL N 31-36 Red Cell Distribution Width 13 % N 10.5-15 Platelet Count 178 10^3/uL N 150-450 Mean Platelet Volume 9.5 um3 N 7.4-10.4 Comp Metabolic Panel 03/23/2018 [facility] Sodium 136 mmol/L N 135-145 [place] [address] [phone] Potassium 4.1 mmol/L N 3.5-5.0 Chloride 106 mmol/L N 101-111 Co2 Carbon Dioxide 24 mmol/L N 22-32 Anion Gap 6 mmol/L N 2-11 Glucose 124 mg/dL 70-140 Blood Urea Nitrogen 8 mg/dL N 6-24 Creatinine 0.76 mg/dL N 0.51-0.95 BUN/Creatinine Ratio 10.5 N 8-20 Calcium 9.4 mg/dL N 8.6-10.3 Total Protein 7.2 g/dL N 6.4-8.9 Albumin 4.2 g/dL N 3.2-5.2 Globulin 3.0 g/dL N 2-4 Albumin/Globulin Ratio 1.4 N 1-3 Total Bilirubin 0.40 mg/dL N 0.2-1.0 Alkaline Phosphatase 38 U/L N 34-104 Alt 14 U/L N 7-52 Ast 18 U/L N 13-39 Egfr Non- 90.6 >60 Egfr 109.6 >60 11 Laboratory test 03/23/2018 [facility] Ferritin 5.8 ng/mL Low 11-307 finding [place], [place] [id number] [phone] TSH (Thyroid Stim Horm) 1.08 mcIU/mL N 0.34-5.60 Vitamin B12 846 pg/mL N 180-914 12 Poc Urinalysis 08/14/2017 [facility] Poc Glucose, [place] [address] Urine [phone] Poc Bilirubin, Urine Negative Negative Poc Ketone, Urine Negative Negative Poc Specific [place], Urine 1.010 N 1.010-1.030 Poc Blood, Urine Negative Negative Poc pH, Urine 7.5 N 5-9 Poc Protein, Urine Negative Negative Poc Urobilinogen, Urine 0.2 Negative Poc Nitrite, Urine Positive Abnormal Negative Poc Leukocytes, Urine 1+ Abnormal Negative Poc Color, Urine Yellow Poc Clarity, Urine Clear 13 Laboratory test 08/14/2017 [facility] Urine Culture And SEE RESULT 14, 15 [place] [address] Sensitivities BELOW [phone] Lipid Profile 06/27/2017 [facility] Triglycerides 64 mg/dL < 150 16 (Trig/Chol/HDL) [place] [address] [phone] Cholesterol 160 mg/dL <200 17 HDL Cholesterol 57.1 mg/dL >40 18 LDL Cholesterol 90 mg/dL <160 19 Basic Metabolic Panel 06/27/2017 [facility] Sodium 136 mmol/L N 133-145 [place] [address] [phone] Potassium 4.0 mmol/L N 3.5-5.0 Chloride 103 mmol/L N 101-111 Co2 Carbon Dioxide 25 mmol/L N 22-32 Anion Gap 8 mmol/L N 2-11 Glucose 76 mg/dL N 70-100 Blood Urea Nitrogen 6 mg/dL N 6-24 Creatinine 0.68 mg/dL N 0.51-0.95 BUN/Creatinine Ratio 8.8 N 8-20 Calcium 9.3 mg/dL N 8.6-10.3 Egfr Non- 103.8 >60 Egfr 133.5 >60 20 CBC No Diff 06/27/2017 [facility] White Blood 4.4 10^3/uL N 3.5-10.8 [place] [address] Count [phone] Red Blood Count 4.57 10^6/uL N 4.0-5.4 Hemoglobin 13.5 g/dL N 12.0-16.0 Hematocrit 39 % N 35-47 Mean Corpuscular Volume 86 fL N 80-97 Mean Corpuscular Hemoglobin 30 pg N 27-31 Mean Corpuscular HGB Conc 35 g/dL N 31-36 Red Cell Distribution Width 13 % N 10.5-15 Platelet Count 192 10^3/uL N 150-450 Mean Platelet Volume 10 um3 N 7.4-10.4 Laboratory test 06/27/2017 [facility] Hemoglobin A1c 4.8 % N 4.0-5.6 21 [place] [address] (Glyco HGB) [phone] Insulin Level 7.6 mcIU/mL 2.6 - 24.9 22 Testosterone 06/27/2017 [facility] Free 1.02 0.06-1.06 23 Free & [place] [address] Testosterone ng/dL [phone] ng/[phone] Testosterone 51 ng/dL 8-60 24 Laboratory test 06/27/2017 [facility] Dhea Sulfate 223 g/dL 44-332 25 [place] [address] [phone] Hydroxy Progesterone 94 ng/dL 26 Basic Metabolic Panel 06/03/2017 [facility] Sodium 138 mmol/L N 133-145 [place] [address] [phone] Potassium 4.1 mmol/L N 3.5-5.0 Chloride 106 mmol/L N 101-111 Co2 Carbon Dioxide 26 mmol/L N 22-32 Anion Gap 6 mmol/L N 2-11 Glucose 94 mg/dL N 70-100 Blood Urea Nitrogen 7 mg/dL N 6-24 Creatinine 0.75 mg/dL N 0.51-0.95 BUN/Creatinine Ratio 9.3 N 8-20 Calcium 8.9 mg/dL N 8.6-10.3 Egfr Non- 92.7 >60 Egfr 119.2 >60 27 Laboratory test 06/03/2017 [facility] Magnesium 2.0 mg/dL N 1.9-2.7 [place] [address] [phone] Basic Metabolic 03/17/2017 [facility] Sodium 137 mmol/L N 133- 145 Panel [place], [place] 0632408 [phone] Potassium 4.2 mmol/L N 3.5-5.0 Chloride 106 mmol/L N 101-111 Co2 Carbon Dioxide 26 mmol/L N 22-32 Anion Gap 5 mmol/L N 2-11 Glucose 74 mg/dL N 70-100 Blood Urea Nitrogen 7 mg/dL N 6-24 Creatinine 0.77 mg/dL N 0.51-0.95 BUN/Creatinine Ratio 9.1 N 8-20 Calcium 9.6 mg/dL N 8.6-10.3 Egfr Non- 89.9 N >60 Egfr 115.6 N >60 28 Laboratory test 03/17/2017 [facility] Magnesium 2.1 mg/dL N 1.9-2.7 finding [place], [place] [address]704644 [phone] Laboratory test 02/07/2017 [facility] Insulin Level 5.3 N 2.6 - 24.9 29 [place] [address] mcIU/mL [phone] Glucose 74 mg/dL N 70-100 Laboratory test finding 02/04/2017 [facility] Glucose 115 mg/dL 70-140 [place] [address] [phone] Insulin Level 58.3 mcIU/mL Abnormal 2.6 - 24.9 30 C-Peptide 6.9 ng/mL Abnormal 1.1 - 4.4 31 Laboratory test 10/07/2016 [facility] TSH (Thyroid 2.69 mcIU/mL N 0.34-5.60 [place] [address] Stim Hlud) [phone] Creatine Kinase(CK) 95 U/L N 10-223 HCG 0.05 mIU/mL N 32 Iron & Iron Binding 10/07/2016 [facility] Iron 83 g/dL N 50- [address] [place], [place] [address] [phone] Unsaturated Iron Binding 439 g/dL N Total Iron Binding Capacity 522 g/dL High 250-450 % Iron Saturation 16 % N 15-55 Laboratory test 10/07/2016 [facility] Phosphorus 1.1 mg/dL Low 2.5-5.0 [place] [address] [phone] Magnesium 2.0 mg/dL N 1.9-2.7 Troponin I 0.00 ng/mL N <0.04 33 Comp Metabolic Panel 10/07/2016 [facility] Sodium 138 mmol/L N 133-145 [place] [address] [phone] Potassium 3.4 mmol/L Low 3.5-5.0 Chloride 108 mmol/L N 101-111 Co2 Carbon Dioxide 23 mmol/L N 22-32 Anion Gap 7 mmol/L N 2-11 Glucose 74 mg/dL N 70-100 Blood Urea Nitrogen 6 mg/dL N 6-24 Creatinine 0.66 mg/dL N 0.51-0.95 BUN/Creatinine Ratio 9.1 N 8-20 Calcium 9.8 mg/dL N 8.6-10.3 Total Protein 8.3 g/dL N 6.4-8.9 Albumin 4.8 g/dL N 3.2-5.2 Globulin 3.5 g/dL N 2-4 Albumin/Globulin Ratio 1.4 N 1-3 Total Bilirubin 0.40 mg/dL N 0.2-1.0 Alkaline Phosphatase 38 U/L N 34-104 Alt 12 U/L N 7-52 Ast 17 U/L N 13-39 Egfr Non- 108.3 N >60 Egfr 139.2 N >60 34 Urinalysis Profile 10/07/2016 [facility] Urine Color Colorless N [place], [place] [id number] [phone] Urine Appearance Clear N Urine Specific [place] 1.001 Low 1.010-1.030 Urine pH 8.0 N 5-9 Urine Urobilinogen Negative N Negative Urine Ketones Negative N Negative Urine Protein Negative N Negative Urine Leukocytes Negative N Negative Urine Blood Negative N Negative Urine Nitrite Negative N Negative Urine Bilirubin Negative N Negative Urine Glucose Negative N Negative Laboratory test 10/07/2016 [facility] Activated 26.4 seconds N 26.0-36.3 [place] [address] Partial [phone] Thrombo Time Lactic Acid 1.1 mmol/L N 0.5-2.0 35 Inr/Protime 10/07/2016 [facility] Inr 0.84 Low 0.89-1.11 [place] [address] [phone] CBC Auto Diff 10/07/2016 [facility] White Blood 6.0 10^3/uL N 3.5-10.8 [place] [address] Count [phone] Red Blood Count 5.52 10^6/uL High 4.0-5.4 Hemoglobin 16.2 g/dL High 12.0-16.0 Hematocrit 48 % High 35-47 Mean Corpuscular Volume 87 fL N 80-97 Mean Corpuscular Hemoglobin 29 pg N 27-31 Mean Corpuscular HGB Conc 34 g/dL N 31-36 Red Cell Distribution Width 12 % N 10.5-15 Platelet Count 244 10^3/uL N 150-450 Mean Platelet Volume 9 um3 N 7.4-10.4 Abs Neutrophils 2.8 10^3/uL N 1.5-7.7 Abs Lymphocytes 2.6 10^3/uL N 1.0-4.8 Abs Monocytes 0.4 10^3/uL N 0-0.8 Abs Eosinophils 0.1 10^3/uL N 0-0.6 Abs Basophils 0 10^3/uL N 0-0.2 Abs Nucleated RBC 0 10^3/uL N Granulocyte % 47.2 % N 38-83 Lymphocyte % 44.1 % N 25-47 Monocyte % 7.1 % N 1-9 Eosinophil % 0.8 % N 0-6 Basophil % 0.8 % N 0-2 Nucleated Red Blood Cells % 0.1 N Basic Metabolic Panel 07/03/2016 [facility] Sodium 136 mmol/L N 133-145 [place] [address] [phone] Potassium 4.4 mmol/L N 3.5-5.0 Chloride 105 mmol/L N 101-111 Co2 Carbon Dioxide 26 mmol/L N 22-32 Anion Gap 5 mmol/L N 2-11 Glucose 77 mg/dL N 70-100 Blood Urea Nitrogen 4 mg/dL Low 6-24 Creatinine 0.75 mg/dL N 0.51-0.95 BUN/Creatinine Ratio 5.3 Low 8-20 Calcium 9.7 mg/dL N 8.6-10.3 Egfr Non- 93.4 N >60 Egfr 120.1 N >60 36 Laboratory 07/03/2016 [facility] Magnesium 2.0 mg/dL N 1.9- 2.7 [place] [address] [phone] Order 07/02/2016 [facility] [place] [address] [phone] Laboratory 05/20/2016 [facility] Urine Culture And SEE RESULT 37 [place] [address] Sensitivities BELOW [phone] Hemoglobin/Hem 05/20/2016 [facility] Hemoglobin 15.1 g/dL N 12.0-16.0 [place] [address] [phone] Hematocrit 45 % N 35-47 Laboratory test 05/20/2016 [facility] Ferritin < 10.0 Low 11- 307 [place] [address] ng/mL [phone] Lipid Profile 05/20/2016 [facility] Triglycerides 80 mg/dL N < 150 38 (Trig/Chol/HDL) [place] [address] [phone] Cholesterol 184 mg/dL N <200 39 HDL Cholesterol 54.2 mg/dL N >40 40 LDL Cholesterol 114 mg/dL N <160 41 Laboratory test 05/20/2016 [facility] Magnesium 2.0 mg/dL N 1.9-2.7 [place] [address] [phone] Phosphorus 2.8 mg/dL N 2.5-5.0 Vitamin B12 642 pg/mL N 180-914 42 Basic Metabolic Panel 05/20/2016 [facility] Sodium 136 mmol/L N 133-145 [place] [address] [phone] Potassium 4.1 mmol/L N 3.5-5.0 Chloride 107 mmol/L N 101-111 Co2 Carbon Dioxide 23 mmol/L N 22-32 Anion Gap 6 mmol/L N 2-11 Glucose 84 mg/dL N 70-100 Blood Urea Nitrogen 8 mg/dL N 6-24 Creatinine 0.85 mg/dL N 0.51-0.95 BUN/Creatinine Ratio 9.4 N 8-20 Calcium 9.1 mg/dL N 8.6-10.3 Egfr Non- 80.8 N >60 Egfr 104.0 N >60 43 Urinalysis Profile 05/20/2016 [facility] Urine Color Yellow N [place], [place] [id number] [phone] Urine Appearance Cloudy N Urine Specific [place] 1.019 N 1.010-1.030 Urine pH 5.0 N 5-9 Urine Urobilinogen Negative N Negative Urine Ketones Negative N Negative Urine Protein Negative N Negative Urine Leukocytes Trace Abnormal Negative Urine Blood 1+ Abnormal Negative Urine Nitrite Negative N Negative Urine Bilirubin Negative N Negative Urine Glucose Negative N Negative Urine White Blood Cell Trace(0-5/hpf) N Absent Urine Red Blood Cell Trace(0-2/hpf) N Absent Urine Bacteria 1+ Abnormal Absent Urine Squamous Epithelial Cell Present Abnormal Absent CBC Auto Diff 10/18/2015 [facility] White Blood 4.5 10^3/uL N 3.5-10.8 [place] [address] Count [phone] Red Blood Count 5.11 10^6/uL N 4.0-5.4 Hemoglobin 14.6 g/dL N 12.0-16.0 Hematocrit 44 % N 35-47 Mean Corpuscular Volume 86 fL N 80-97 Mean Corpuscular Hemoglobin 29 pg N 27-31 Mean Corpuscular HGB Conc 33 g/dL N 31-36 Red Cell Distribution Width 13 % N 10.5-15 Platelet Count 220 10^3/uL N 150-450 Mean Platelet Volume 9 um3 N 7.4-10.4 Abs Neutrophils 2.1 10^3/uL N 1.5-7.7 Abs Lymphocytes 1.9 10^3/uL N 1.0-4.8 Abs Monocytes 0.4 10^3/uL N 0-0.8 Abs Eosinophils 0.1 10^3/uL N 0-0.6 Abs Basophils 0 10^3/uL N 0-0.2 Abs Nucleated RBC 0.01 10^3/uL N Granulocyte % 46.4 % N 38-83 Lymphocyte % 43.4 % N 25-47 Monocyte % 8.1 % N 1-9 Eosinophil % 1.3 % N 0-6 Basophil % 0.8 % N 0-2 Nucleated Red Blood Cells % 0.1 N Xray 09/05/2015 [facility] US Measurement 400/35 ml Inter[facility] [place] [address] Residual [phone] Urine/Bladd Capacity Order 06/11/2015 [facility] Hemoccult Ict - Negative [address] Fecal Test [place], [place] [id number] [phone] Laboratory test 06/09/2015 [facility] Stool Occult SEE RESULT Neg 44 [place] [address] Blood BELOW [phone] Stool Culture SEE RESULT BELOW 45 Comp Metabolic Panel 06/07/2015 [facility] Sodium 138 mmol/L N 133-145 [place] [address] [phone] Potassium 4.2 mmol/L N 3.5-5.0 Chloride 106 mmol/L N 101-111 Co2 Carbon Dioxide 27 mmol/L N 22-32 Anion Gap 5 mmol/L N 2-11 Glucose 79 mg/dL N 70-100 Blood Urea Nitrogen 7 mg/dL N 6-24 Creatinine 0.86 mg/dL N 0.51-0.95 One Over Creatinine 1.10 mg/dL High 0.51-0.95 BUN/Creatinine Ratio 8.1 N 8-20 Calcium 9.5 mg/dL N 8.6-10.3 Total Protein 7.0 g/dL N 6.4-8.9 Albumin 4.3 g/dL N 3.2-5.2 Globulin 2.7 g/dL N 2-4 Albumin/Globulin Ratio 1.6 N 1-3 Total Bilirubin 0.50 mg/dL N 0.2-1.0 Alkaline Phosphatase 35 U/L N 34-104 Alt 16 U/L N 7-52 Ast 16 U/L N 13-39 Egfr Non- 80.4 N >60 Egfr 103.4 N >60 46 Liver Function 06/07/2015 [facility] Direct 0.10 mg/dL N 0.03- 0.18 [place] [address] Bilirubin [phone] Indirect Bilirubin 0.4 mg/dL N 0.3-1.0 Laboratory test 06/07/2015 [facility] Phosphorus 3.0 mg/dL N 2.5-5.0 [place] [address] [phone] Magnesium 2.0 mg/dL N 1.9-2.7 GGTP 13 U/L N 9-64.0 CBC Auto Diff 05/24/2015 [facility] White Blood 5.3 10^3/uL N 4.8-10.8 [place] [address] Count [phone] Red Blood Count 5.00 10^6/uL N 4.0-5.4 Hemoglobin 14.5 g/dL N 12.0-16.0 Hematocrit 43 % N 35-47 Mean Corpuscular Volume 87 fL N 80-97 Mean Corpuscular Hemoglobin 29 pg N 27-31 Mean Corpuscular HGB Conc 33 g/dL N 31-36 Red Cell Distribution Width 12 % N 10.5-15 Platelet Count 235 10^3/uL N 150-450 Mean Platelet Volume 9 um3 N 7.4-10.4 Abs Neutrophils 3.0 10^3/uL N 1.5-7.7 Abs Lymphocytes 1.9 10^3/uL N 1.0-4.8 Abs Monocytes 0.4 10^3/uL N 0-0.8 Abs Eosinophils 0 10^3/uL N 0-0.6 Abs Basophils 0.1 10^3/uL N 0-0.2 Abs Nucleated RBC 0 10^3/uL N Granulocyte % 55.6 % N 38-83 Lymphocyte % 35.3 % N 25-47 Monocyte % 7.6 % N 1-9 Eosinophil % 0.5 % N 0-6 Basophil % 1.0 % N 0-2 Nucleated Red Blood Cells % 0.1 N Inr/Protime 05/24/2015 [facility] Inr 0.95 N 0.89-1.11 47 [place] [address] [phone] Laboratory test 05/24/2015 [facility] Activated 28.0 N 26.0- 36.3 [place] [address] Partial seconds [phone] Thrombo Time Lactic Acid 0.9 mmol/L N 0.5-2.2 B Type Natriuretic Peptide 41 pg/mL N 48 Comp Metabolic Panel 05/24/2015 [facility] Sodium 138 mmol/L N 133-145 [place], [place] [address]31 [phone] Potassium 3.5 mmol/L N 3.5-5.0 Chloride 109 mmol/L N 101-111 Co2 Carbon Dioxide 24 mmol/L N 22-32 Anion Gap 5 mmol/L N 2-11 Glucose 75 mg/dL N 70-100 Blood Urea Nitrogen 11 mg/dL N 6-24 Creatinine 0.72 mg/dL N 0.51-0.95 BUN/Creatinine Ratio 15.3 N 8-20 Calcium 9.0 mg/dL N 8.6-10.3 Total Protein 7.0 g/dL N 6.4-8.9 Albumin 4.1 g/dL N 3.2-5.2 Globulin 2.9 g/dL N 2-4 Albumin/Globulin Ratio 1.4 N 1-3 Total Bilirubin 0.40 mg/dL N 0.2-1.0 Alkaline Phosphatase 26 U/L Low 34-104 Alt 14 U/L N 7-52 Ast 15 U/L N 13-39 Egfr Non- 98.7 N >60 Egfr 126.9 N >60 49 Laboratory test 05/24/2015 [facility] Phosphorus 1.5 mg/dL Low 2.5-5.0 [place] [address] [phone] Magnesium 1.9 mg/dL N 1.9-2.7 Lipase 29 U/L N 11.0-82.0 C Reactive Protein < 1.00 mg/L N < 5.00 50 Troponin I 0.00 ng/mL N <0.03 51 CKMB 05/24/2015 [facility] CKMB ng/mL 0.6 ng/mL N 0.6-6.3 [place], [place] [address]28 [phone] Urine Drug 05/24/2015 [facility] Amphetamine Ur None Detected N None Detect SCR ED & [place] [address] Screen [facility] [phone] Barbiturates Urine Screen None Detected N None Detect Benzodiazepine Urine Screen None Detected N None Detect Urine Cannabinoids Screen None Detected N None Detect Urine Cocaine Screen None Detected N None Detect Urine Opiates Screen None Detected N None Detect Urine Phencyclidine Screen None Detected N None Detect 52 Laboratory test 05/24/2015 [facility] Serum Negative N Negative finding [place], [place] [address]479 [phone] Urinalysis 05/24/2015 [facility] Urine Color Straw N Profile [place], [place] [address]24 [phone] Urine Appearance Clear N Urine Specific [place] 1.005 Low 1.010-1.030 Urine pH 8.0 N 5-9 Urine Urobilinogen Negative N Negative Urine Ketones Negative N Negative Urine Protein Negative N Negative Urine Leukocytes Negative N Negative Urine Blood Negative N Negative Urine Nitrite Negative N Negative Urine Bilirubin Negative N Negative Urine Glucose Negative N Negative Laboratory test 05/24/2015 [facility] TSH (Thyroid 1.29 ?IU/mL N 0.34-5.60 [place] [address] Stim Horm) [phone] Urinalysis 05/11/2015 [facility] Urine [place] [address] [phone] Urine Appearance Clear N Urine Specific [place] 1.003 Low 1.010-1.030 Urine pH 7.0 N 5-9 Urine Urobilinogen Negative N Negative Urine Ketones Negative N Negative Urine Protein Negative N Negative Urine Leukocytes Negative N Negative Urine Blood Negative N Negative Urine Nitrite Negative N Negative Urine Bilirubin Negative N Negative Urine Glucose Negative N Negative Laboratory test 05/11/2015 [facility] Magnesium 2.0 mg/dL N 1.9-2.7 [place] [address] [phone] Comp Metabolic 05/11/2015 [facility] Sodium 135 mmol/L N 133- 145 [place] [address] [phone] Potassium 3.8 mmol/L N 3.5-5.0 Chloride 103 mmol/L N 101-111 Co2 Carbon Dioxide 26 mmol/L N 22-32 Anion Gap 6 mmol/L N 2-11 Glucose 71 mg/dL N 70-100 Blood Urea Nitrogen 9 mg/dL N 6-24 Creatinine 0.75 mg/dL N 0.51-0.95 BUN/Creatinine Ratio 12.0 N 8-20 Calcium 9.6 mg/dL N 8.6-10.3 Total Protein 7.2 g/dL N 6.4-8.9 Albumin 4.4 g/dL N 3.2-5.2 Globulin 2.8 g/dL N 2-4 Albumin/Globulin Ratio 1.6 N 1-3 Total Bilirubin 0.40 mg/dL N 0.2-1.0 Alkaline Phosphatase 30 U/L Low 34-104 Alt 14 U/L N 7-52 Ast 16 U/L N 13-39 Egfr Non- 94.2 N >60 Egfr 121.1 N >60 53 Laboratory test 05/11/2015 [facility] Beta HCG < 0.60 [place] [address] Quantitative mIU/mL [phone] Order 04/25/2015 [facility] [place] [address] [phone] Xray 03/22/2015 [facility] Ultrasound, Normal [address] [address] (Eg, Renal, Aorta, [phone] Nodes) Laboratory test 03/09/2015 [facility] Cortisol 24.97 High 8.7 - 54 [place] [address] ?g/dL 22.4 [phone] TSH (Thyroid Stim Horm) 2.46 ?IU/mL N 0.34-5.60 Acth 15 pg/mL N 55 Ambar (Anti-Nuclear AB) Screen Negative N Negative Vitamin B12 505 pg/mL N 180-914 56 Ferritin 13.4 ng/mL N 11-307 Laboratory test 03/03/2015 [facility] Magnesium 1.9 mg/dL N 1.9-2.7 [place] [address] [phone] Comp Metabolic 03/03/2015 [facility] Sodium 138 mmol/L N 133- 145 [place] [address] [phone] Chloride 109 mmol/L N 101-111 Co2 Carbon Dioxide 23 mmol/L N 22-32 Glucose 71 mg/dL N 70-100 Creatinine 0.81 mg/dL N 0.51-0.95 Calcium 9.4 mg/dL N 8.6-10.3 Total Protein 7.1 g/dL N 6.4-8.9 Albumin 4.1 g/dL N 3.2-5.2 Globulin 3.0 g/dL N 2-4 Albumin/Globulin Ratio 1.4 N 1-3 Total Bilirubin 0.50 mg/dL N 0.2-1.0 Alkaline Phosphatase 27 U/L Low 34-104 Alt 12 U/L N 7-52 Egfr Non- 86.2 N >60 Egfr 110.8 N >60 57 Potassium 4.0 mmol/L N 3.5-5.0 Anion Gap 6 mmol/L N 2-11 Ast 20 U/L N 13-39 Blood Urea Nitrogen 7 mg/dL N 6-24 BUN/Creatinine Ratio 8.6 N 8-20 CBC Auto Diff 03/03/2015 [facility] White Blood 5.5 10^3/uL N 4.8-10.8 [place] [address] Count [phone] Red Blood Count 4.95 10^6/uL N 4.0-5.4 Hemoglobin 14.2 g/dL N 12.0-16.0 Hematocrit 43 % N 35-47 Mean Corpuscular Volume 88 fL N 80-97 Mean Corpuscular Hemoglobin 29 pg N 27-31 Mean Corpuscular HGB Conc 33 g/dL N 31-36 Red Cell Distribution Width 12 % N 10.5-15 Platelet Count 250 10^3/uL N 150-450 Mean Platelet Volume 9 um3 N 7.4-10.4 Abs Neutrophils 3.0 10^3/uL N 1.5-7.7 Abs Lymphocytes 2.0 10^3/uL N 1.0-4.8 Abs Monocytes 0.4 10^3/uL N 0-0.8 Abs Eosinophils 0.1 10^3/uL N 0-0.6 Abs Basophils 0 10^3/uL N 0-0.2 Abs Nucleated RBC 0 10^3/uL N Granulocyte % 53.9 % N 38-83 Lymphocyte % 36.3 % N 25-47 Monocyte % 7.8 % N 1-9 Eosinophil % 1.2 % N 0-6 Basophil % 0.8 % N 0-2 Nucleated Red Blood Cells % 0 N Laboratory test 02/16/2015 [facility] Magnesium 2.0 mg/dL N 1.9-2.7 [place] [address] [phone] Comp Metabolic 02/16/2015 [facility] Sodium 139 mmol/L N 133- 145 [place] [address] [phone] Potassium 4.0 mmol/L N 3.5-5.0 Chloride 107 mmol/L N 101-111 Co2 Carbon Dioxide 26 mmol/L N 22-32 Anion Gap 6 mmol/L N 2-11 Glucose 81 mg/dL N 70-100 Blood Urea Nitrogen 9 mg/dL N 6-24 Creatinine 0.76 mg/dL N 0.51-0.95 BUN/Creatinine Ratio 11.8 N 8-20 Calcium 9.2 mg/dL N 8.6-10.3 Total Protein 7.1 g/dL N 6.4-8.9 Albumin 4.2 g/dL N 3.2-5.2 Globulin 2.9 g/dL N 2-4 Albumin/Globulin Ratio 1.4 N 1-3 Total Bilirubin 0.50 mg/dL N 0.2-1.0 Alkaline Phosphatase 30 U/L Low 34-104 Alt 11 U/L N 7-52 Ast 15 U/L N 13-39 Egfr Non- 92.7 N >60 Egfr 119.3 N >60 58 CBC Auto Diff 02/16/2015 [facility] White Blood 5.2 10^3/uL N 4.8-10.8 [place] [address] Count [phone] Red Blood Count 5.00 10^6/uL N 4.0-5.4 Hemoglobin 14.8 g/dL N 12.0-16.0 Hematocrit 44 % N 35-47 Mean Corpuscular Volume 88 fL N 80-97 Mean Corpuscular Hemoglobin 30 pg N 27-31 Mean Corpuscular HGB Conc 34 g/dL N 31-36 Red Cell Distribution Width 12 % N 10.5-15 Platelet Count 217 10^3/uL N 150-450 Mean Platelet Volume 9 um3 N 7.4-10.4 Abs Neutrophils 2.8 10^3/uL N 1.5-7.7 Abs Lymphocytes 2.0 10^3/uL N 1.0-4.8 Abs Monocytes 0.3 10^3/uL N 0-0.8 Abs Eosinophils 0 10^3/uL N 0-0.6 Abs Basophils 0.1 10^3/uL N 0-0.2 Abs Nucleated RBC 0 10^3/uL N Granulocyte % 53.5 % N 38-83 Lymphocyte % 38.5 % N 25-47 Monocyte % 6.1 % N 1-9 Eosinophil % 0.9 % N 0-6 Basophil % 1.0 % N 0-2 Nucleated Red Blood Cells % 0 N Xray 01/04/2015 [facility] Ultrasound, Normal [address] Breast, [place] [address] Bilateral [phone] Order 12/16/2014 [facility] 24 Hour Holter <1% [place] [address] Monitor Bay/Tachy [phone] ,1 pc Laboratory test 11/30/2014 [facility] Vitamin D Total 65.4 ng/ mL High 30-50 [place] [address] 25(Oh) [phone] Basic Metabolic 11/30/2014 [facility] Sodium 138 mmol/L N 133- 1 [place] [address] 45 [phone] Potassium 4.0 mmol/L N 3.5-5.0 Chloride 105 mmol/L N 101-111 Co2 Carbon Dioxide 28 mmol/L N 22-32 Anion Gap 5 mmol/L N 2-11 Glucose 80 mg/dL N 70-100 Blood Urea Nitrogen 8 mg/dL N 6-24 Creatinine 0.84 mg/dL N 0.51-0.95 BUN/Creatinine Ratio 9.5 N 8-20 Calcium 9.5 mg/dL N 8.6-10.3 Egfr Non- 82.6 N >60 Egfr 106.2 N >60 59 1 <5.0 Negative 5.0 - 25.0 Indeterminate (Repeat testing recommended after 72 hours) >25.0 Positive Perimenopausal women can display HCG levels of up to 20 mIU/mL 2 AM 8.7-22.4 PM <10 3 FASTING 4 Because ethnic data is not always readily available, this report includes an eGFR for both -Americans and non- Americans. The National Kidney Disease Education Program (NKDEP) does not endorse the use of the MDRD equation for patients that are not between the ages of 18 and 70, are , have extremes of body size, muscle mass, or nutritional status, or are non- or non-. According to the National Kidney Foundation, irrespective of diagnosis, the stage of the disease is based on the level of kidney function: Stage Description GFR(mL/min/1.73 m(2)) 1 Kidney damage with normal or decreased GFR 90 2 Kidney damage with mild decrease in GFR 60-89 3 Moderate decrease in GFR 30-59 4 Severe decrease in GFR 15-29 5 Kidney failure <15 (or dialysis) 5 Because ethnic data is not always readily available, this report includes an eGFR for both -Americans and non- Americans. The National Kidney Disease Education Program (NKDEP) does not endorse the use of the MDRD equation for patients that are not between the ages of 18 and 70, are , have extremes of body size, muscle mass, or nutritional status, or are non- or non-. According to the National Kidney Foundation, irrespective of diagnosis, the stage of the disease is based on the level of kidney function: Stage Description GFR(mL/min/1.73 m(2)) 1 Kidney damage with normal or decreased GFR 90 2 Kidney damage with mild decrease in GFR 60-89 3 Moderate decrease in GFR 30-59 4 Severe decrease in GFR 15-29 5 Kidney failure <15 (or dialysis) 6 Desirable: <150 Borderline High: 150-199 High: 200-499 Very High: >500 7 Desirable: <200 Borderline High: 200-239 High: >239 8 Low: <40 Desirable: 40-60 High: >60 9 Desirable: <100 Near Optimal: 100-129 Borderline High: 130-159 High: 160-189 Very High: >189 10 Because ethnic data is not always readily available, this report includes an eGFR for both -Americans and non- Americans. The National Kidney Disease Education Program (NKDEP) does not endorse the use of the MDRD equation for patients that are not between the ages of 18 and 70, are , have extremes of body size, muscle mass, or nutritional status, or are non- or non-. According to the National Kidney Foundation, irrespective of diagnosis, the stage of the disease is based on the level of kidney function: Stage Description GFR(mL/min/1.73 m(2)) 1 Kidney damage with normal or decreased GFR 90 2 Kidney damage with mild decrease in GFR 60-89 3 Moderate decrease in GFR 30-59 4 Severe decrease in GFR 15-29 5 Kidney failure <15 (or dialysis) 11 Because ethnic data is not always readily available, this report includes an eGFR for both -Americans and non- Americans. The National Kidney Disease Education Program (NKDEP) does not endorse the use of the MDRD equation for patients that are not between the ages of 18 and 70, are , have extremes of body size, muscle mass, or nutritional status, or are non- or non-. According to the National Kidney Foundation, irrespective of diagnosis, the stage of the disease is based on the level of kidney function: Stage Description GFR(mL/min/1.73 m(2)) 1 Kidney damage with normal or decreased GFR 90 2 Kidney damage with mild decrease in GFR 60-89 3 Moderate decrease in GFR 30-59 4 Severe decrease in GFR 15-29 5 Kidney failure <15 (or dialysis) 12 Normal Range 180 to 914 Indeterminate Range 145 to 180 Deficient Range <145 13 Dulser: [id number] SEE RESULT BELOW Name: MELANIA BARBER : [address]: Bashir Cevallos MD Acct: [id number] Unit: [id number] AGE: 26 Location: [facility] Re08/14/17 SEX: F Status: DEP ER SPEC: [id number] CASSIDY: 08/14/17-[address]: Madelaine Sanchez NP REQ: [id number] RECD: 08/15/17 STATUS: MILAD DELVALLE DR: Xiang Cevallos MD _ SOURCE: URINE SPDESC: ORDERED: Urine Culture COMMENTS: [id number] Procedure Result Reported Site Urine Culture Final 08/16/17- 929 ML No growth of clinically significant organisms * ML - MAIN LAB ([facility]) . END OF REPORT * ML=Testing performed at Main Lab DEPARTMENT OF PATHOLOGY, [address] [place] [address] Ky Merritt M.D. Director [facility] # [id number] 16 Desirable: <150 Borderline High: 150-199 High: 200-499 Very High: >500 17 Desirable: <200 Borderline High: 200-239 High: >239 18 Low: <40 Desirable: 40-60 High: >60 19 Desirable: <100 Near Optimal: 100-129 Borderline High: 130-159 High: 160-189 Very High: >189 20 Because ethnic data is not always readily available, this report includes an eGFR for both -Americans and non- Americans. The National Kidney Disease Education Program (NKDEP) does not endorse the use of the MDRD equation for patients that are not between the ages of 18 and 70, are , have extremes of body size, muscle mass, or nutritional status, or are non- or non-. According to the National Kidney Foundation, irrespective of diagnosis, the stage of the disease is based on the level of kidney function: Stage Description GFR(mL/min/1.73 m(2)) 1 Kidney damage with normal or decreased GFR 90 2 Kidney damage with mild decrease in GFR 60-89 3 Moderate decrease in GFR 30-59 4 Severe decrease in GFR 15-29 5 Kidney failure <15 (or dialysis) 21 Therapeutic target for the treatment of diabetes mellitus patients is <7% HBA1C, and in selective patients <6.0%. Please refer to [place] [employer] diabetic care guidelines for further information. 22 Test Performed by: [facility] - [address] [address] 23 ADDITIONAL INFORMATION Testing performed by [facility]. This test was developed and its performance characteristics determined by [facility] in a manner consistent with CLIA requirements. This test has not been cleared or approved by the U.S. Food and Drug Administration. 24 ADDITIONAL INFORMATION Testing performed by [facility]at[facility]-Tandem Mass Spectrometry (LC-MS/MS). This test was developed and its performance characteristics determined by [facility] in a manner consistent with CLIA requirements. This test has not been cleared or approved by the U.S. Food and Drug Administration. Test Performed by: [facility] - [address] [address] 25 Test Performed by: [facility] - [address] [address] 26 REFERENCE VALUE < 80 (Follicular) <285 (Luteal) ADDITIONAL INFORMATION This test was developed and its performance characteristics determined by [facility] in a manner consistent with CLIA requirements. This test has not been cleared or approved by the U.S. Food and Drug Administration. Test Performed by: [facility] - [address] [address] 27 Because ethnic data is not always readily available, this report includes an eGFR for both -Americans and non- Americans. The National Kidney Disease Education Program (NKDEP) does not endorse the use of the MDRD equation for patients that are not between the ages of 18 and 70, are , have extremes of body size, muscle mass, or nutritional status, or are non- or non-. According to the National Kidney Foundation, irrespective of diagnosis, the stage of the disease is based on the level of kidney function: Stage Description GFR(mL/min/1.73 m(2)) 1 Kidney damage with normal or decreased GFR 90 2 Kidney damage with mild decrease in GFR 60-89 3 Moderate decrease in GFR 30-59 4 Severe decrease in GFR 15-29 5 Kidney failure <15 (or dialysis) 28 Because ethnic data is not always readily available, this report includes an eGFR for both -Americans and non- Americans. The National Kidney Disease Education Program (NKDEP) does not endorse the use of the MDRD equation for patients that are not between the ages of 18 and 70, are , have extremes of body size, muscle mass, or nutritional status, or are non- or non-. According to the National Kidney Foundation, irrespective of diagnosis, the stage of the disease is based on the level of kidney function: Stage Description GFR(mL/min/1.73 m(2)) 1 Kidney damage with normal or decreased GFR 90 2 Kidney damage with mild decrease in GFR 60-89 3 Moderate decrease in GFR 30-59 4 Severe decrease in GFR 15-29 5 Kidney failure <15 (or dialysis) 29 Test Performed by: [facility] [employer] [facility] [address] [place] [address] 30 Test Performed by: [facility] [address] [place] [address] 31 Test Performed by: [place] [address] [place] [address] 32 <5.0 Negative 5.0 - 25.0 Indeterminate (Repeat testing recommended after 72 hours) >25.0 Positive Perimenopausal women can display HCG levels of up to 20 mIU/mL 33 99th percentile=0.04 ng/mL Troponin results at [facility] are not interchangeable. 34 Because ethnic data is not always readily available, this report includes an eGFR for both -Americans and non- Americans. The National Kidney Disease Education Program (NKDEP) does not endorse the use of the MDRD equation for patients that are not between the ages of 18 and 70, are , have extremes of body size, muscle mass, or nutritional status, or are non- or non-. According to the National Kidney Foundation, irrespective of diagnosis, the stage of the disease is based on the level of kidney function: Stage Description GFR(mL/min/1.73 m(2)) 1 Kidney damage with normal or decreased GFR 90 2 Kidney damage with mild decrease in GFR 60-89 3 Moderate decrease in GFR 30-59 4 Severe decrease in GFR 15-29 5 Kidney failure <15 (or dialysis) 35 [facility] Severe Sepsis and Septic Shock Management Bundle Measure requires all lactic acids initially measuring >2.0 mmol/L be repeated. 36 Because ethnic data is not always readily available, this report includes an eGFR for both -Americans and non- Americans. The National Kidney Disease Education Program (NKDEP) does not endorse the use of the MDRD equation for patients that are not between the ages of 18 and 70, are , have extremes of body size, muscle mass, or nutritional status, or are non- or non-. According to the National Kidney Foundation, irrespective of diagnosis, the stage of the disease is based on the level of kidney function: Stage Description GFR(mL/min/1.73 m(2)) 1 Kidney damage with normal or decreased GFR 90 2 Kidney damage with mild decrease in GFR 60-89 3 Moderate decrease in GFR 30-59 4 Severe decrease in GFR 15-29 5 Kidney failure <15 (or dialysis) 37 SEE RESULT BELOW Name: MELANIA BARBER : [address]: Xiang Muir MD Acct: [id number] Unit: [id number] AGE: 25 Location: [facility] Re05/20/16 SEX: F Status: REG REF SPEC: [id number] CASSIDY: 05/20/[address] [facility] [address]: Xiang Muir MD REQ: [id number] RECD: 05/20/16 STATUS: MILAD DELVALLE DR: Froy Penny MD _ SOURCE: URINE SPDESC: ORDERED: Urine Culture Procedure Result Reported Site Urine Culture Final 05/21/16- 1302 ML No Growth (<1,000 CFU/mL) * ML - MAIN LAB ([facility]) . END OF REPORT * ML=Testing performed at Main Lab DEPARTMENT OF PATHOLOGY, [address] [place] [address] Ky Merritt M.D. Director [facility] # [id number] 38 Desirable <150 Borderline high 150-199 High 200-499 Very High >500 39 Desirable <200 Borderline high 200-239 High >239 40 Low <40 Desirable: 40-60 High: >60 41 Desirable: <100 mg/dL Near Optimal: 100-129 mg/dL Borderline High: 130-159 mg/dL High: 160-189 mg/dL Very High: >189 mg/dL 42 Normal Range 180 to 914 Indeterminate Range 145 to 180 Deficient Range <145 43 Because ethnic data is not always readily available, this report includes an eGFR for both -Americans and non- Americans. The National Kidney Disease Education Program (NKDEP) does not endorse the use of the MDRD equation for patients that are not between the ages of 18 and 70, are , have extremes of body size, muscle mass, or nutritional status, or are non- or non-. According to the National Kidney Foundation, irrespective of diagnosis, the stage of the disease is based on the level of kidney function: Stage Description GFR(mL/min/1.73 m(2)) 1 Kidney damage with normal or decreased GFR 90 2 Kidney damage with mild decrease in GFR 60-89 3 Moderate decrease in GFR 30-59 4 Severe decrease in GFR 15-29 5 Kidney failure <15 (or dialysis) 44 SEE RESULT BELOW Name: MELANIA BARBER : [address]: Xiang Muir MD Acct: [id number] Unit: [id number] AGE: 24 Location: [facility] Re06/09/15 SEX: F Status: REG REF SPEC: [id number] CASSIDY: 06/09/[address] [facility] [address]: Xiang Muir MD REQ: [id number] RECD: 06/09/15 STATUS: COMP _ [facility]: Hem[facility]cult Procedure Result Reported Site Stool Occult Blood Final 06/09/15- 1502 ML Stool Occult Blood Negative * ML - MAIN LAB ([facility]) . END OF REPORT * ML=Testing performed at Main Lab DEPARTMENT OF PATHOLOGY, [address] [place] [address] Ky Merritt M.D. Director [facility] # [id number] 45 SEE RESULT BELOW Name: MELANIA BARBER : [address]: Xiang Muir MD Acct: [id number] Unit: [id number] AGE: 24 Location: [facility] Re06/09/15 SEX: F Status: REG REF SPEC: [id number] CASSIDY: 06/09/[address]: Xiang Muir MD REQ: [id number] RECD: 06/09/15 STATUS: COMP _ SOURCE: STOOL SPDC: ORDERED: Stool Culture Procedure Result Reported Site Stool Culture Final 06/11/15- 1526 ML Result No enteric pathogens isolated Testing for Salmonella, Shigella, Aeromonas, Plesiomonas, Yersinia and Campylobacter are included in a Stool Culture. Vibrio spp not routinely tested for in a stool culture. If testing is desired, please request specifically when placing test order. Sensitivities not routinely performed on stool isolates, as antibiotics may prolong the carriage rate of bacteria. Please contact the microbiology lab if sensitivities are required. Stool Specimen Description Final 06/09/15- 1539 ML Stool Color Brown Stool Form Nonformed Stool Consistency Liquid Shiga Toxin 1 2 Final 06/12/15- 1028 ML Organism 1 Negative Shiga Toxin 1 2 Immunochromatographic Assay CONTINUED ON NEXT PAGE * ML=Testing performed at Main Lab DEPARTMENT OF PATHOLOGY, [address] [place] [address] Ky Merritt M.D. Director [facility] # [id number] Patient: CHARUMELANIA M [id number] (Continued) Specimen: [id number] Collected: 06/09/15 Received: 06/09/15-1331 (Continued) Procedure Result Reported Site Shiga Toxin 1 2 Final (continued) 06/12/15- 1808 * ML - MAIN LAB ([facility]) . END OF REPORT * ML=Testing performed at Main Lab DEPARTMENT OF PATHOLOGY, [address] [place] [address] Ky Merritt M.D. Director [facility] # [id number] 46 Because ethnic data is not always readily available, this report includes an eGFR for both -Americans and non- Americans. The National Kidney Disease Education Program (NKDEP) does not endorse the use of the MDRD equation for patients that are not between the ages of 18 and 70, are , have extremes of body size, muscle mass, or nutritional status, or are non- or non-. According to the National Kidney Foundation, irrespective of diagnosis, the stage of the disease is based on the level of kidney function: Stage Description GFR(mL/min/1.73 m(2)) 1 Kidney damage with normal or decreased GFR 90 2 Kidney damage with mild decrease in GFR 60-89 3 Moderate decrease in GFR 30-59 4 Severe decrease in GFR 15-29 5 Kidney failure <15 (or dialysis) 47 Effective immediately, due to a laboratory mean normal Protime change, the reference range for the INR has changed. 48 >100 to <200 pg/mL: likely compensated congestive heart failure (CHF) 200 to 400 pg/mL: likely moderate CHF >400 pg/mL: likely moderate to severe CHF 49 Because ethnic data is not always readily available, this report includes an eGFR for both -Americans and non- Americans. The National Kidney Disease Education Program (NKDEP) does not endorse the use of the MDRD equation for patients that are not between the ages of 18 and 70, are , have extremes of body size, muscle mass, or nutritional status, or are non- or non-. According to the National Kidney Foundation, irrespective of diagnosis, the stage of the disease is based on the level of kidney function: Stage Description GFR(mL/min/1.73 m(2)) 1 Kidney damage with normal or decreased GFR 90 2 Kidney damage with mild decrease in GFR 60-89 3 Moderate decrease in GFR 30-59 4 Severe decrease in GFR 15-29 5 Kidney failure <15 (or dialysis) 50 Acute inflammation: >10.00 51 Reference Range and Interpretation: TnI (ng/mL) Interpretation Less Than 0.03 ng/mL Not supportive of diagnosis of MD 0.03 - 0.50 ng/mL Indeterminate: suggest serial studies if clinically indicated. Greater than 0.5 ng/mL Consistent with diagnosis of MD 52 The urine specimen was tested at the listed cutoffs: Drug class test level (ng/mL) Amphetamines 500 Barbituates 200 Benzodiazepine metabolites 200 Cocaine metabolites 150 Cannabinoids 50 Opiates 300 Pcp 25 This is a screening procedure. Positive results are not confirmed. Specimen was received without chain of custody. Results should be used for medical purposes only. 53 Because ethnic data is not always readily available, this report includes an eGFR for both -Americans and non- Americans. The National Kidney Disease Education Program (NKDEP) does not endorse the use of the MDRD equation for patients that are not between the ages of 18 and 70, are , have extremes of body size, muscle mass, or nutritional status, or are non- or non-. According to the National Kidney Foundation, irrespective of diagnosis, the stage of the disease is based on the level of kidney function: Stage Description GFR(mL/min/1.73 m(2)) 1 Kidney damage with normal or decreased GFR 90 2 Kidney damage with mild decrease in GFR 60-89 3 Moderate decrease in GFR 30-59 4 Severe decrease in GFR 15-29 5 Kidney failure <15 (or dialysis) 54 AM 8.7-22.4 PM <10 55 REFERENCE VALUE 1060 (a.m. collection) Test Performed by: [address] [address] [employer] Specimen Technician: Bashir Galvez II, M.D., Ph.D. 56 Normal Range 180 to 914 Indeterminate Range 145 to 180 Deficient Range <145 57 Because ethnic data is not always readily available, this report includes an eGFR for both -Americans and non- Americans. The National Kidney Disease Education Program (NKDEP) does not endorse the use of the MDRD equation for patients that are not between the ages of 18 and 70, are , have extremes of body size, muscle mass, or nutritional status, or are non- or non-. According to the National Kidney Foundation, irrespective of diagnosis, the stage of the disease is based on the level of kidney function: Stage Description GFR(mL/min/1.73 m(2)) 1 Kidney damage with normal or decreased GFR 90 2 Kidney damage with mild decrease in GFR 60-89 3 Moderate decrease in GFR 30-59 4 Severe decrease in GFR 15-29 5 Kidney failure <15 (or dialysis) 58 Because ethnic data is not always readily available, this report includes an eGFR for both -Americans and non- Americans. The National Kidney Disease Education Program (NKDEP) does not endorse the use of the MDRD equation for patients that are not between the ages of 18 and 70, are , have extremes of body size, muscle mass, or nutritional status, or are non- or non-. According to the National Kidney Foundation, irrespective of diagnosis, the stage of the disease is based on the level of kidney function: Stage Description GFR(mL/min/1.73 m(2)) 1 Kidney damage with normal or decreased GFR 90 2 Kidney damage with mild decrease in GFR 60-89 3 Moderate decrease in GFR 30-59 4 Severe decrease in GFR 15-29 5 Kidney failure <15 (or dialysis) 59 Because ethnic data is not always readily available, this report includes an eGFR for both -Americans and non- Americans. The National Kidney Disease Education Program (NKDEP) does not endorse the use of the MDRD equation for patients that are not between the ages of 18 and 70, are , have extremes of body size, muscle mass, or nutritional status, or are non- or non-. According to the National Kidney Foundation, irrespective of diagnosis, the stage of the disease is based on the level of kidney function: Stage Description GFR(mL/min/1.73 m(2)) 1 Kidney damage with normal or decreased GFR 90 2 Kidney damage with mild decrease in GFR 60-89 3 Moderate decrease in GFR 30-59 4 Severe decrease in GFR 15-29 5 Kidney failure <15 (or dialysis) Procedures Date Code Description Status 07/02/2016 47482 Electrocardiogram Complete Completed 04/25/2015 83244 Electrocardiogram Complete Completed 12/16/2014 36446 ECG Monitor/Report W/O Superimposition Scanning Completed Encounters Type Date Location Provider Dx Diagnosis Office Visit 02/02/2019 Main Office Xiang Muir R55 Syncope and collapse 11:00a F41.9 Anxiety disorder, unspecified Office Visit 12/10/2018 1:00p Main Office Xiang Londono F33.1 Major depressive MD Isadora disorder, recurrent, moderate F41.9 Anxiety disorder, unspecified E61.1 Iron deficiency Office Visit 09/09/2018 2:00p Main Office Xiang Londono Z00.01 Encounter for MD Isadora general adult medical exam w abnormal findings R63.5 Abnormal weight gain E61.1 Iron deficiency F41.9 Anxiety disorder, unspecified F33.1 Major depressive disorder, recurrent, moderate Office Visit 05/25/2018 12:00p Main Office Xiang Muir MD R53.83 Other fatigue E61.1 Iron deficiency F41.9 Anxiety disorder, unspecified Z23 Encounter for immunization F33.1 Major depressive disorder, recurrent, moderate Office Visit 03/23/2018 10:40a Main Office Xiang Muir MD R53.83 Other fatigue F41.9 Anxiety disorder, unspecified F51.02 Adjustment insomnia Office Visit 12/29/2017 2:20p Main Office Xiang Londono B07.0 Plantar wart MD Isadora Office Visit 09/11/2017 1:40p Main Office Xiang Londono I95.1 Orthostatic MD Isadora hypotension F41.9 Anxiety disorder, unspecified 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 Office Visit 07/02/2017 1:40p Main Office Xiang Londono Z00.01 Encounter for MD Isadora general adult medical exam w abnormal findings F41.9 Anxiety disorder, unspecified 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 R79.9 Abnormal finding of blood chemistry, unspecified K21.9 Gastro-esophageal reflux disease without esophagitis Office Visit 06/04/2017 11:40a Main Office Xiang Londono K21.9 Gastro- esophageal MD Isadora reflux disease without esophagitis I95.1 Orthostatic hypotension F41.9 Anxiety disorder, unspecified Office Visit 04/28/2017 12:00p Main Office Xiang Londono I95.1 Orthostatic MD Isadora hypotension F41.9 Anxiety disorder, unspecified R79.9 Abnormal finding of blood chemistry, unspecified Office Visit 04/17/2017 9:40a Main Office Xiang Londono I95.1 Orthostatic MD Isadora hypotension F41.9 Anxiety disorder, unspecified Office Visit 04/15/2017 1:40p Main Office Xiang Londono I95.1 Orthostatic MD Isadora hypotension R19.7 Diarrhea, unspecified F41.9 Anxiety disorder, unspecified Office Visit 03/04/2017 1:00p Main Office Xiang Londono F41.9 Anxiety disorder, MD Isadora unspecified 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 Office Visit 02/04/2017 12:20p Main Office Xiang Muir R42 Dizziness and giddiness R79.9 Abnormal finding of blood chemistry, unspecified F41.9 Anxiety disorder, unspecified Office Visit 01/14/2017 12:00p Main Office Xiang Londono F41.9 Anxiety disorder, MD Isadora unspecified F51.02 Adjustment insomnia Office Visit 01/02/2017 12:00p Main Office Xiang Londono F41.9 Anxiety disorder, MD Isadora unspecified F51.02 Adjustment insomnia Office Visit 10/08/2016 2:00p Main Office Xiang Muir MD R53.83 Other fatigue R53.1 Weakness I95.1 Orthostatic hypotension F41.9 Anxiety disorder, unspecified Office Visit 08/14/2016 3:00p Main Office Xiang Londono F45.8 Other somatoform MD Isadora disorders R11.0 Nausea I95.1 Orthostatic hypotension F41.1 Generalized anxiety disorder Office Visit 07/02/2016 3:00p Main Office Xiang Muir MD R00.2 Palpitations I95.1 Orthostatic hypotension F41.1 Generalized anxiety disorder F43.23 Adjustment disorder with mixed anxiety and depressed mood Office Visit 06/19/2016 3:40p Main Office Xiang Londono Z00.01 Encounter for MD Isadora general adult medical exam w abnormal findings I95.1 Orthostatic hypotension F43.23 Adjustment disorder with mixed anxiety and depressed mood Office Visit 11/07/2015 2:20p Main Office Xiang Londono F41.1 Generalized anxiety MD Isadora disorder R51 Headache F51.5 Nightmare disorder M54.2 Cervicalgia B37.3 Candidiasis of vulva and vagina F51.3 Sleepwalking [somnambulism] G47.9 Sleep disorder, unspecified Office Visit 10/17/2015 2:00p Main Office Xiang Muir MD M54.2 Cervicalgia R59.0 Localized enlarged lymph nodes Office Visit 08/28/2015 2:00p Main Office Xiang Londono G47.9 Sleep disorder Isadora MD unspecified 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.3 Sleepwalking [somnambulism] F41.1 Generalized anxiety disorder R35.0 Frequency of micturition Office Visit 08/10/2015 10:00a Main Office Xiang Londono G47.9 Sleep disorder Isadora MD unspecified 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572 Pain in left ankle MD Isadora and joints of left foot Office Visit 06/13/2015 4:20p Main Office Xiang Londono R19.7 Diarrhea, MD Isadora unspecified E83.42 Hypomagnesemia Office Visit 06/08/2015 2:00p Main Office Xiang Londono R19.7 Diarrhea, MD Isadora unspecified Office Visit 05/10/2015 2:20p Main Office Xiang Londono R11.0 Nausea MD Isadora E83.42 Hypomagnesemia I95.1 Orthostatic hypotension R35.0 Frequency of micturition Office Visit 04/25/2015 3:00p Main Office Xiang Muir MD R00.2 Palpitations R06.02 Shortness of breath M99.08 Segmental and somatic dysfunction of rib cage Office Visit 04/13/2015 1:40p Main Office Xiang Londono J20.9 Acute bronchitis, MD Isadora unspecified B34.9 Viral infection, unspecified Office Visit 03/22/2015 2:40p Main Office Xiang Londono I95.1 Orthostatic MD Isadora hypotension R53.1 Weakness R00.0 Tachycardia, unspecified Office Visit 03/14/2015 1:40p Main Office Xiang Londono 910.4 Injury Superficial MD Isadora Insect Bite Face Neck Scalp Nonven No Inf Office Visit 03/06/2015 1:40p Main Office Xiang Londono 458.0 Hypotension MD Isadora Orthostatic 780.79 Malaise And Fatigue Other 300.00 Anxiety State Unspec 300.01 Panic Disorder W/O Agoraphobia Office Visit 01/31/2015 2:00p Main Office Hong Hernández, 785.[address] [facility] 458.0 Hypotension Orthostatic 611.71 Mastodynia 300.00 Anxiety State Unspec Office Visit 01/03/2015 2:00p Main Office Hong Hernández, 785.[address] [facility] 458.0 Hypotension Orthostatic 611.71 Mastodynia 786.05 Shortness Of Breath 785.1 Palpitations 787.20 Dysphagia, Unspecified 995.3 Allergy Unspec 300.00 Anxiety State Unspec Office Visit 12/14/2014 10:40a Main Office Hong Hernández, 785.[address] [facility] 786.05 Shortness Of Breath 458.0 Hypotension Orthostatic 785.1 Palpitations 787.20 Dysphagia, Unspecified 995.3 Allergy Unspec 784.0 Headache 300.00 Anxiety State Unspec Office Visit 11/30/2014 10:00a Main Office Hong Hernández, 785.[address] [facility] 458.0 Hypotension Orthostatic 787.20 Dysphagia, Unspecified 783.0 Anorexia 783.21 Loss Of Weight 784.0 Headache 790.6 Abnormal Blood Chemistry Other Office Visit 11/23/2014 9:00a Main Office Hong Hernández, 785.[address] [facility] 784.0 Headache 783.21 Loss Of Weight 783.0 Anorexia 300.00 Anxiety State Unspec Plan of Treatment Future Appointment(s):03/17/2019 3:20 pm - Xiang Muir MD at Main [id number]/02/2019 - Xiang Muir MDR55 Syncope and collapseComments: Fainting due to medications.Off SSRI from 01/28 and possible effects due to that.Advised to hold BB for now due to low BP.No orthostatic change. Now asymptomatic except tiredness feeling. Lifestyle and dietary modifications advised. Advised to follow as planned with labs and report any concerns.Advised not to drive if not feeling well.F41.9 Anxiety disorder, unspecifiedComments:Clinically stable. Continue recommended plan of care. Follow up recommendations discussed. Encouraged to continue efforts related to modification of life style.
[2019-02-15 10:35] VITALS: BP 108/79
--- NOTE | 2019-02-15 10:50 | UC ---
Throat Pain/Nasal Shadi HPI - HPI Summary HPI Summary: 28-year-old female who has had head congestion and cold symptoms for the past 2 weeks, and the past couple of days she's had sinus pressure, purulent nasal drainage, upper teeth aching. - History of Current Complaint Chief Complaint: UCRespiratory Stated Complaint: SINUS PRESSURE Time Seen by Provider: 02/15/19 10:24 Hx Obtained From: Patient Hx Last Menstrual Period: 01/12/19 ?: No Onset/Duration: Gradual Onset Severity: Moderate Pain Intensity: 7 Cough: None Associated Signs & Symptoms: Positive: Sinus Discomfort, Nasal Discharge - Allergies/Home Medications Allergies/Adverse Reactions: Allergies Allergy/AdvReac Type Severity Reaction Status Date / Time latex Allergy Hives Verified 02/15/19 10:36 Home Medications: Home Medications Iron Ps Complex/B12/Folic Acid [Iferex 150 Forte] 1 cap PO QPM 02/15/19 [ History Confirmed 02/15/19] PMH/Surg Hx/FS Hx/Imm Hx Previously Healthy: Yes Cardiovascular History: Hypertension Respiratory History: Asthma Other History Of: Negative For: Anticoagulant Therapy - Surgical History Surgical History: Yes Surgery Procedure, Year, and Place: [employer]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 She states this is normal for her and her primary care provider is aware of that. She's had no recent syncopal episodes but she states she does feel them "coming on" whenever she is sick. Is Patient Immunocompromised?: No Physical Exam Triage Information Reviewed: Yes Appearance: Well-Appearing, No Pain Distress, Well-Nourished Vital Signs: Initial Vital Signs Temp 98 F 02/15/19 10:25 Pulse 103 02/15/19 10:25 Resp 18 02/15/19 10:25 BP 108/79 02/15/19 10:25 Pulse Ox 100 02/15/19 10:25 Vital Signs Reviewed: Yes Eyes: Positive: Conjunctiva Clear ENT: Positive: Pharynx normal, Nasal congestion, Nasal drainage - Right-sided purulent nasal coryza with tenderness on palpation and clear sinuses bilaterally. Purulent postnasal drainage., Sinus tenderness, Uvula midline. Negative: Tonsillar swelling, Tonsillar exudate, Trismus, Muffled voice, Hoarse voice Neck: Positive: Supple, Nontender, No Lymphadenopathy Respiratory: Positive: Lungs clear, Normal breath sounds, No respiratory distress, No accessory muscle use Cardiovascular: Positive: RRR, No Murmur, Pulses Normal, Brisk Capillary Refill Musculoskeletal: Positive: Strength Intact, ROM Intact Neurological: Positive: Alert, Muscle Tone Normal Psychological Exam: Normal Skin: Positive: Breakdown - Mild skin irritation around her nose from wiping her nose frequently. Throat Pain/Nasal Course/Dx - Course Course Of Treatment: Patient is comfortable here. Going to treat her for a sinus infection and she is to follow-up with her primary care provider in 4-5 days if no improvement. - Differential Dx/Diagnosis Provider Diagnosis: Sinusitis Discharge - Sign-Out/Discharge Documenting (check all that apply): Patient Departure All imaging exams completed and their final reports reviewed: No Studies - Discharge Plan Condition: Fair Disposition: HOME Prescriptions: Amoxicillin PO (*) [Amoxicillin 875 MG (*)] 875 mg PO BID 10 Days #20 tab Patient Education Materials: Sinusitis (ED) Referrals: Xiang Muir MD [Primary Care Provider] - Additional Instructions: Increase fluids, [id number] decongestant as directed, follow-up with your primary care provider if no improvement in 4 or 5 days. - Billing Disposition and Condition Condition: FAIR Disposition: Home - Attestation Statements Provider Attestation: This patient was not seen by me. I was available for consult. LORE
== END 2019-02-15 11:03 | disposition home or self-care (01) ==
LOC: UCCORT 10:03
DX: J32.9 Chronic sinusitis, unspecified (principal); I10 Essential (primary) hypertension
CPT/HCPCS: 99212; G0463